=== PATIENT | female | born 1995 | race Caucasian/White ===

== ENCOUNTER 2025-09-01 21:05 | Inpatient (IN) | payer BC, SELFPAY ==
[2025-09-01 20:47] VITALS: BP 120/73; PULSE 79; TEMP 36.7; O2SAT 98
[2025-09-01 21:01] VITALS: BMI 35.2
--- OUTSIDE RECORDS SUMMARY | 2025-09-01 21:10 | XMS RPT_ITS | CCD ---
Author Organization [facility] Care Team Providers Care Patternmaker Helper Name Role Phone Jaquelin Castillo Unavailable Unavailable SONAL RHODES Unavailable Unavailable REFERRING, CHUNGY WO ID~[id number] Unavailable Unava ilable Unavailable Primary Care Provider JUDY Solis Attending Unavailable BUTLER, JUDY LOONEY Primary Care Unavailable PLOTTS, CHRISTINE Attending Unavailable PLOTTS, CHRISTINE Referring Unavailable HAURY, ALEC Attending Unavailable PLOTTS, CHRISTINE Attending Unavailable PLOTTS, CHRISTINE Attending Unavailable PLOTTS, CHRISTINE Referring Unavailable PLOTTS, CHRISTINE Attending Unavailable PLOTTS, CHRISTINE Referring Unavailable SIMONA GONZALES Attending Unavailable PLOTTS, CHRISTINE Attending Unavailable PLOTTS, CHRISTINE Attending Unavailable PLOTTS, CHRISTINE Referring Unavailable TAL GALLOWAY Attending Unavailable PLOTTS, CHRISTINE Attending Unavailable PLOTTS, CHRISTINE Referring Unavailable PLOTTS, CHRISTINE Attending Unavailable Medications Current Medications Medication Drug Class(es) Dates Sig (Normalized) Sig (Original) aspirin 81 mg delayed release oral tablet (8 sources) Platelet Aggregation Inhibitor, Nonsteroidal Anti-inflammatory Drug Start: 01-31-2025 take 1 tablet by mouth once daily aspirin, enteric coated (ECOTRIN LOW STRENGTH) 81 mg EC tablet Indications: with uncertain dates, antepartum (HCC) , Bicornate uterus , Subchorionic hematoma in first trimester, single or unspecified fetus (HCC) , 10 weeks gestation of (HCC) , Encounter for supervision of normal first in first trimester (HCC) Take 1 tablet by mouth once daily. 90 tablet 3 01/31/2025 Active cholecalciferol 0.125 mg oral tablet (8 sources) Vitamin D take 1 tablet by mouth once daily cholecalciferol (VITAMIN D-3) 5,000 unit tab Take 5,000 Units by mouth once daily. Active XHZ-VKJ-SHDTYMXYIB AGENT-VIT E ORAL (8 sources) take 1 tablet by mouth once daily AJI-RCO-AURPLLWXFO AGENT-VIT E ORAL Take 1 tablet by mouth once daily. Active famotidine 20 mg oral tablet (4 sources) Histamine-2 Receptor Antagonist Start: 03-13-2025 take 1 tablet by mouth twice daily famotidine (PEPCID) 20 mg tablet Take 1 tablet by mouth two times a day. 60 tablet 2 03/13/2025 Active MAG CITRATE-POTASSIUM CITRATE ORAL (8 sources) take 1 tablet by mouth once daily MAG CITRATE-POTASSIUM CITRATE ORAL Take 1 tablet by mouth once daily. Active ondansetron 4 mg oral tablet (5 sources) Serotonin-3 Receptor Antagonist Start: 02-14-2025 take 1 tablet by mouth every eight hours as needed for nausea ondansetron (ZOFRAN) 4 mg tablet Indications: Encounter for supervision of high risk in second trimester, antepartum (HCC) , 12 weeks gestation of (HCC) , Nausea and vomiting during (HCC) Take 1 tablet by mouth every 8 hours as needed for nausea/vomiting. 60 tablet 1 02/14/2025 Active OTC PRODUCT (8 sources) take 1 tablet by mouth once daily OTC PRODUCT Take 1 tablet by mouth once daily. methylhydrofolate Active vits18/iron/folic/ds s (PRENACARE ORAL) (8 sources) take 1 tablet by mouth once daily vits18/iron/folic/dss (PRENACARE ORAL) Take 1 tablet by mouth once daily. Active Problems Active Problems Problem Classification Problem Date Documented Da te Episodic/Chronic Bacterial infection; unspecified site (1 source) Streptococcus, group B, as the cause of diseases classified elsewhere; Translations: [Positive GBS test] Onset: 08-05-2025 Episodic Genitourinary congenital anomalies (14 sources) Bicornuate uterus; Translations: [Bicornate uterus] Onset: 01-31-2025 01-31-2025 Chronic Immunizations and screening for infectious disease (5 sources) Encounter for screening for infections with a predominantly sexual mode of transmission; Translations: [Patient encounter status] Onset: 05-17-2018 01-31-2025 Episodic Other complications of (1 source) Anemia in mother complicating , childbirth AND/OR puerperium; Translations: [Anemia complicating , second trimester] Onset: 06-06-2025 06-06-2025 Chronic Other complications of (1 source) Anemia complicating , third trimester; Translations: [Anemia complicating , third trimester (HCC)] Onset: 07-05-2025 Chronic Other complications of (12 sources) Rubella non-immune; Translations: [Supervision of other high risk pregnancies, unspecified trimester] Onset: 02-01-2025 02-14-2025 Episodic Other complications of (2 sources) Supervision of high risk , unspecified, second trimester; Translations: [Supervision of high risk in second trimester (FORM[facility]LY [facility])] Onset: 04-11-2025 Episodic Other complications of (1 source) Uterine size-date discrepancy, third trimester; Translations: [Uterine size-date discrepancy, third trimester ([facility])] Onset: 07-05-2025 Episodic Other gastrointestinal disorders (9 sources) Constipation; Translations: [Constipation, unspecified] 01-31-2025 Episodic Other and delivery including normal (14 sources) with uncertain dates; Translations: [Normal ] Onset: 01-31-2025 01-31-2025 Episodic Residual codes; unclassified (3 sources) Gestation period, 10 weeks; Translations: [10 weeks gestation of ] 01-31-2025 Episodic Residual codes; unclassified (2 sources) Gestation period, 12 weeks; Translations: [12 weeks gestation of ] 02-14-2025 Episodic Residual codes; unclassified (1 source) Gestation period, 15 weeks; Translations: [15 weeks gestation of ] 03-13-2025 Episodic Residual codes; unclassified (2 sources) Gestation period, 20 weeks; Translations: [20 weeks gestation of ] 04-11-2025 Episodic Residual codes; unclassified (1 source) Gestation period, 28 weeks; Translations: [28 weeks gestation of ] 06-06-2025 Episodic Residual codes; unclassified (1 source) 37 weeks gestation of ; Translations: [37 weeks gestation of ([facility])] Onset: 08-09-2025 Episodic Residual codes; unclassified (1 source) 36 weeks gestation of ; Translations: [36 weeks gestation of ([facility])] Onset: 08-02-2025 Episodic Residual codes; unclassified (1 source) 34 weeks gestation of ; Translations: [34 weeks gestation of ([facility])] Onset: 07-19-2025 Episodic Residual codes; unclassified (1 source) 32 weeks gestation of ; Translations: [32 weeks gestation of (HCC)] Onset: 07-05-2025 Episodic Residual codes; unclassified (1 source) 30 weeks gestation of ; Translations: [30 weeks gestation of (HCC)] Onset: 06-20-2025 Episodic Residual codes; unclassified (1 source) 28 weeks gestation of ; Translations: [28 weeks gestation of (HCC)] Onset: 06-06-2025 Episodic Unclassified (1 source) Unknown / UNK(Unknown) Onset: 07-10-2017 Unclassified (8 sources) [facility] Education - COMMON Onset: 01-31-2025 01-31-2025 Unclassified (8 sources) Education - [place] Onset: 01-31-2025 01-31-2025 Unclassified (1 source) Rubella non-immune status, antepartum (HCC); Translations: [Rubella non-immune status, antepartum (HCC)] Onset: 02-01-2025 Past or Other Problems Problem Classification Problem Date Documented Da te Episodic/Chronic Hemorrhage during ; abruptio placenta; placenta previa (1 source) Other antepartum hemorrhage, first trimester; Translations: [Subchorionic hematoma in first trimester, single or unspecified fetus (HCC)] Onset: 01-31-2025 Episodic Other complications of (10 sources) High risk ; Translations: [Supervision of high risk , unspecified, second trimester] Onset: 01-31-2025 02-14-2025 Episodic Other complications of (2 sources) Vomiting of , unspecified; Translations: [Unspecified vomiting of , unspecified as to episode of care or not applicable] Onset: 02-14-2025 02-14-2025 Episodic Other complications of (6 sources) Heartburn; Translations: [Other specified related conditions, second trimester] Onset: 03-13-2025 Resolved: 04-11-2025 03-13-2025 Episodic Other complications of (1 source) Other specified related conditions, second trimester; Translations: [Heartburn during in second trimester (HCC)] Onset: 03-13-2025 Episodic Other complications of (1 source) Supervision of other high risk pregnancies, unspecified trimester; Translations: [Rubella non-immune status, antepartum (HCC)] Onset: 02-01-2025 Episodic Other gastrointestinal disorders (1 source) Heartburn; Translations: [Heartburn during in second trimester (HCC)] Onset: 03-13-2025 Episodic Other screening for suspected conditions (not mental disorders or infectious disease) (6 sources) Cancer cervix screening status; Translations: [Encounter for screening for malignant neoplasm of cervix] Onset: 02-14-2025 01-31-2025 Episodic Polyhydramnios and other problems of amniotic cavity (14 sources) Subchorionic hematoma; Translations: [Other specified disorders of amniotic fluid and membranes, first trimester, not applicable or unspecified] Onset: 01-31-2025 Resolved: 06-06-2025 01-31-2025 Episodic Residual codes; unclassified (1 source) 23 weeks gestation of ; Translations: [23 weeks gestation of (HCC)] Onset: 05-08-2025 Episodic Residual codes; unclassified (1 source) 20 weeks gestation of ; Translations: [20 weeks gestation of ([facility])] Onset: 04-11-2025 Episodic Residual codes; unclassified (1 source) 15 weeks gestation of ; Translations: [15 weeks gestation of ([facility])] Onset: 03-13-2025 Episodic Residual codes; unclassified (1 source) 12 weeks gestation of ; Translations: [12 weeks gestation of ([facility])] Onset: 02-14-2025 Episodic Residual codes; unclassified (1 source) 10 weeks gestation of ; Translations: [10 weeks gestation of ([facility])] Onset: 01-31-2025 Episodic Unclassified (1 source) +ETOH, DAILEY, 6 Onset: 07-10-2017 Results Test Name Value Interpretation Reference Range Facility ROUTINE, GROUP B ST REPTOCOCCUS BY PCRon 08-02-2025 ROUTINE, GROUP B STREPTOCOCCUS BY PCR Detected Abnormal [facility] Comment on above: Performed By: #### 5 5454-3 #### [facility] CLIA [id number] [address] [place] [address] [place] CBC W Auto Differential pane l (Bld)on 06-06-2025 Basophils (Bld) [#/Vol] 10*3/uL Normal <0.11 [facility] Comment on above: Order Comment: Speci men Type: BLOOD SPECIMEN Ordering Facility: [facility] Address: [address] [place] [address] Performed By: #### 5 7021-8 #### [facility] CLIA [id number] [address] [place] [address] [place] Basophils/100 WBC (Bld) 0.4 % Normal [facility] Comment on above: Order Comment: Speci men Type: BLOOD SPECIMEN Ordering Facility: [facility] Address: [address] [place] [address] Performed By: #### 5 7021-8 #### [facility] CLIA [id number] [address] [place] [address] [place] Differential cell count method Nom (Bld) Auto Normal [facility] Comment on above: Order Comment: Speci men Type: BLOOD SPECIMEN Ordering Facility: [facility] Address: [address] [place] [address] Performed By: #### 5 7021-8 #### [facility] CLIA [id number] [address] [place] [address] [place] Eosinophils (Bld) [#/Vol] 0.09 10*3/uL Normal <0.46 [facility] Comment on above: Order Comment: Speci men Type: BLOOD SPECIMEN Ordering Facility: [facility] Address: [address] [place] [address] Performed By: #### 5 7021-8 #### [facility] CLIA [id number] [address] [place] [address] [place] Eosinophils/100 WBC (Bld) 1.6 % Normal [facility] Comment on above: Order Comment: Speci men Type: BLOOD SPECIMEN Ordering Facility: [facility] Address: [address] [place] [address] Performed By: #### 5 7021-8 #### [facility] CLIA [id number] [address] [place] [address] [place] Erythrocyte distribution width (RBC) [Ratio] 12.3 % Normal 11.5-15.0 [facility] Comment on above: Order Comment: Speci men Type: BLOOD SPECIMEN Ordering Facility: [facility] Address: [address] [place] [address] Performed By: #### 5 7021-8 #### [facility] CLIA [id number] [address] [place] [address] [place] Hematocrit (Bld) [Volume fraction] 31.2 % Low 36.0-46.0 [facility] Comment on above: Order Comment: Speci men Type: BLOOD SPECIMEN Ordering Facility: [facility] Address: [address] [place] [address] Performed By: #### 5 7021-8 #### [id number] [address] [place] [address] [place] Hemoglobin (Bld) [Mass/Vol] 10.4 g/dL Low 11.5-15.5 [facility] Comment on above: Order Comment: Speci men Type: BLOOD SPECIMEN Ordering Facility: [facility] Address: [address] [place] [address] Performed By: #### 5 7021-8 #### [facility] [id number] [address] [place] [address] [place] Immature granulocytes (Bld) [#/Vol] 10*3/uL Normal <0.10 [facility] Comment on above: Order Comment: Speci men Type: BLOOD SPECIMEN Ordering Facility: [facility] Address: [address] [place] [address] Performed By: #### 5 7021-8 #### [facility] [id number] [address] [place] [address] [place] Immature granulocytes/100 WBC (Bld) 0.2 % Normal [facility] Comment on above: Order Comment: Speci men Type: BLOOD SPECIMEN Ordering Facility: [facility] Address: [address] [place] [address] Performed By: #### 5 7021-8 #### [facility] CLIA [id number] [address] [place] [address] [place] Lymphocytes (Bld) [#/Vol] 1.07 10*3/uL Normal 1.00-4.00 [facility] Comment on above: Order Comment: Speci men Type: BLOOD SPECIMEN Ordering Facility: [facility] Address: [address] [place] [address] Performed By: #### 5 7021-8 #### [facility] CLIA [id number] [address] [place] [address] [place] Lymphocytes/100 WBC (Bld) 18.8 % Normal [facility] Comment on above: Order Comment: Speci men Type: BLOOD SPECIMEN Ordering Facility: [facility] Address: [address] [place] [address] Performed By: #### 5 7021-8 #### [facility] CLIA [id number] [address] [place] [address] [place] MCH (RBC) [Entitic mass] 33.7 pg Normal 26.0-34.0 [facility] Comment on above: Order Comment: Speci men Type: BLOOD SPECIMEN Ordering Facility: [facility] Address: [address] [place] [address] Performed By: #### 5 7021-8 #### [facility] CLIA [id number] [address] [place] [address] [place] MCHC (RBC) [Mass/Vol] 33.3 g/dL Normal 30.5-36.0 [facility] Comment on above: Order Comment: Speci men Type: BLOOD SPECIMEN Ordering Facility: [facility] Address: [address] [place] [address] Performed By: #### 5 7021-8 #### [facility] CLIA [id number] [address] [place] [address] [place] MCV (RBC) [Entitic vol] 101.0 fL High 80.0-100.0 [facility] Comment on above: Order Comment: Speci men Type: BLOOD SPECIMEN Ordering Facility: [facility] Address: [address] [place] [address] Performed By: #### 5 7021-8 #### [facility] CLIA [id number] [address] [place] [address] [place] Monocytes (Bld) [#/Vol] 0.52 10*3/uL Normal <0.87 [facility] Comment on above: Order Comment: Speci men Type: BLOOD SPECIMEN Ordering Facility: [facility] Address: [address] [place] [address] Performed By: #### 5 7021-8 #### [facility] CLIA [id number] [address] [place] [address] [place] Monocytes/100 WBC (Bld) 9.1 % Normal [facility] Comment on above: Order Comment: Speci men Type: BLOOD SPECIMEN Ordering Facility: [facility] Address: [address] [place] [address] Performed By: #### 5 7021-8 #### [facility] CLIA [id number] [address] [place] [address] [place] Neutrophils (Bld) [#/Vol] 3.99 10*3/uL Normal 1.45-7.50 [facility] Comment on above: Order Comment: Speci men Type: BLOOD SPECIMEN Ordering Facility: [facility] Address: [address] [place] [address] Performed By: #### 5 7021-8 #### [facility] CLIA [id number] [address] [place] [address] [place] Neutrophils/100 WBC (Bld) 69.9 % Normal [facility] Comment on above: Order Comment: Speci men Type: BLOOD SPECIMEN Ordering Facility: [facility] Address: [address] [place] [address] Performed By: #### 5 7021-8 #### [facility] CLIA [id number] [address] [place] [address] [place] Nucleated RBC (Bld) [#/Vol] 10*3/uL Normal <0.01 [facility] Comment on above: Order Comment: Speci men Type: BLOOD SPECIMEN Ordering Facility: [facility] Address: [address] [place] [address] Performed By: #### 5 7021-8 #### [facility] CLIA [id number] [address] [place] [address] [place] Nucleated RBC/100 WBC (Bld) [Ratio] 0.0 /100 WBC Normal [facility] Comment on above: Order Comment: Speci men Type: BLOOD SPECIMEN Ordering Facility: [facility] Address: [address] [place] [address] Performed By: #### 5 7021-8 #### [facility] CLIA [id number] [address] [place] [address] [place] Platelet mean volume (Bld) [Entitic vol] 8.9 fL Low 9.0-12.7 [facility] Comment on above: Order Comment: Speci men Type: BLOOD SPECIMEN Ordering Facility: [facility] Address: [address] [place] [address] Performed By: #### 5 7021-8 #### [facility] [id number] [address] [place] [address] [place] Platelets (Bld) [#/Vol] 213 10*3/uL Normal 150-400 [facility] Comment on above: Order Comment: Speci men Type: BLOOD SPECIMEN Ordering Facility: [facility] Address: [address] [place], [place] [id number] Performed By: #### 5 7021-8 #### [facility] CLIA [id number] [address] [place] [address] [place] RBC (Bld) [#/Vol] 3.09 10*6/uL Low 3.90-5.20 [facility] Comment on above: Order Comment: Speci men Type: BLOOD SPECIMEN Ordering Facility: [facility] Address: [address] [place] [address] Performed By: #### 5 7021-8 #### [facility] CLIA [id number] [address] [place] [address] [place] WBC (Bld) [#/Vol] 5.70 10*3/uL Normal 3.70-11.00 [facility] Comment on above: Order Comment: Speci men Type: BLOOD SPECIMEN Ordering Facility: [facility] Address: [address] [place] [address] Performed By: #### 5 7021-8 #### [facility] CLIA [id number] [address] [place] [address] [place] GESTATIONAL GLUCOSE SCREEN, 1-HOUR, 50 GRAM, NON-FASTINGon 06-06-2025 Glucose [Mass/Vol] 124 mg/dL Normal 74-134 [facility] Comment on above: Order Comment: Speci men Type: BLOOD SPECIMEN Ordering Facility: [facility] Address: [address] [place], [place] [id number] Result Comment: [facility] Congress of Obstetricians and Gynecologists (Cyndi/Christiano) guidelines state a gestational diabetes mellitus positive screen is made, in women not previously diagnosed with overt diabetes, when the 1 hr plasma glucose level is equal to or above 140 mg/dL. [facility] [facility] Kennan recommends a 135 mg/dL cutoff. Performed By: #### 5 5454-3 #### [facility] CLIA [id number] [address] [place] [address] [place] Reagin and Treponema pallidu m IgG and IgM [Interp]on 06-06-2025 T. pallidum IgG+IgM IA Ql (S) Non-Reactive Normal Nonreactive [facility] Comment on above: Order Comment: Speci men Type: BLOOD SPECIMEN Ordering Facility: [facility] Address: [address] [place] [address] Performed By: #### 5 5454-3 #### [facility] CLIA [id number] [address] [place] [address] [place] Reagin+T pallidum IgG+IgM Se rPl-Impon 06-06-2025 Reagin and Treponema pallidum IgG and IgM [Interp] Cannot exclude recent Treponemal infection if specimen collected within 7-10 days after appearance of suspect lesions or 2-3 weeks after an exposure. Clinical correlation is required. Normal [facility] Comment on above: Order Comment: Speci men Type: BLOOD SPECIMEN Ordering Facility: [facility] Address: [address] [place] [address] Performed By: #### 5 5454-3 #### [facility] CLIA [id number] [address] [place] [address] [place] Examination level ultrasound on 04-11-2025 Indication Standard anatomic survey Impression The patient is referred for a standard anatomic survey. - Single, live, intrauterine . - biometry is consistent with the established gestational age. - No malformations were visualized on a complete standard anatomic survey. - The amniotic fluid volume is normal amount. - The placenta is posterior, fundal. - The Transabdominal cervical length measures 38.9 mm with no evidence of funneling or other dynamic changes. - Not all structural malformations can be detected by ultrasound examination. Recommendations Additional follow-up as clinically indicated. Maternal Assessment Height 163 cm Height (ft) 5 ft Height (in) 4 in Physical Exam Initial weight (lb) 139 lb Initial BMI 23.86 kg/m Maternal assessment other: 1 Para 0 REMOTE READ Method Transabdominal ultrasound examination. View: Adequate visualization Dowd . Number of fetuses: 1 Dating LMP on: 11/22/2024 GA by LMP 20 w + 0 d DANIEL by LMP: 08/29/2025 GA by prior assessment 20 w + 0 d DANIEL by prior assessment: 08/29/2025 Ultrasound examination on: 04/11/2025 GA by U/S based upon: AC, BPD, Femur, HC GA by U/S 20 w + 3 d DANIEL by U/S: 08/26/2025 Assigned: based on the LMP, selected on 01/31/2025 Assigned GA 20 w + 0 d Assigned DANIEL: 08/29/2025 General Evaluation Cardiac activity present. FHR 136 bpm. movements: present. Presentation: cephalic Placenta: Placental site: posterior, fundal Umbilical cord: Cord vessels: 3 vessel cord Amniotic fluid: Amount of AF: normal amount. MVP 4.0 cm Growth Overview Exam date GA BPD (mm) HC (mm) AC (mm) FL (mm) HL (mm) EFW (g) 04/11/2025 20w 0d 47.8 69% 179.9 63% 161.7 83% 30.9 49% 31.3 70% 357 72% Biometry Standard BPD 47.8 mm 20w 3d 69% Hadlock OFD 64.3 mm 20w 3d 90% Nicolaides HC 179.9 mm 20w 3d 63% Wally Cerebellum tr 20.3 mm 19w 3d 58% Hill Nuchal fold 5.3 mm AC 161.7 mm 21w 2d 83% Hadlock Femur 30.9 mm 19w 5d 49% Wally Humerus 31.3 mm 20w 3d 70% Wally EFW 357 g 20w 3d 72% Hadlock EFW (lb) 0 lb EFW (oz) 13 oz EFW by: Hadlock (HC-AC-FL) Extended Gin Clerk 5.8 mm CM 4.0 mm 18% Nicolaides Extremities / Bony Struc FL / HC 0.17 5% Hadlock Other Structures FHR 136 bpm Anatomy Cranium: normal Lateral ventricles: normal Choroid plexus: normal Midline falx: normal Cavum septi pellucidi: normal Cerebellum: normal Cisterna magna: normal Head / Neck Vermis: Normal but not required for a standard anatomy exam Neck: Normal but not required for a standard anatomy exam Nuchal fold: Normal but not required for a standard anatomy exam Lips: normal Profile: Normal but not required for a standard anatomy exam Nose: Normal but not required for a standard anatomy exam Face Maxilla: Normal but not required for a standard anatomy exam Mandible: Normal but not required for a standard anatomy exam Orbits: Normal but not required for a standard anatomy exam Lens: Normal but not required for a standard anatomy exam 4-chamber view: normal RVOT view: normal LVOT view: normal 3-vessel view: normal 5-mxlpnx-ikcqftm view: normal Heart / Thorax Situs: situs solitus (normal) Aortic arch view: Normal but not required for a standard anatomy exam SVC: Normal but not required for a standard anatomy exam IVC: Normal but not required for a standard anatomy exam Cardiac axis: normal Rt lung: Normal but not required for a standard anatomy exam Lt lung: Normal but not required for a standard anatomy exam Diaphragm: normal Cord insertion: normal Stomach: normal Kidneys: normal Bladder: normal Genitals: normal Abdomen Abdom. wall: normal Cervical spine: normal Thoracic spine: normal Lumbar spine: normal Sacral spine: normal Arms: normal Legs: normal Rt upper arm: normal Rt forearm: normal Rt hand: normal Rt fingers: normal Lt upper arm: normal Lt forearm: normal Lt hand: normal Lt fingers: normal Rt upper leg: normal Rt lower leg: normal Rt foot: normal Lt upper leg: normal Lt lower leg: normal Lt foot: normal sex: female Wants to know sex: yes Maternal Structures Uterus / Cervix Uterus: Visualized Cervix: Visualized Approach: Transabdominal Cervical length 38.9 mm Other: Patient declined transvaginal ultrasound for cervical length. Ovaries / Tubes / Adnexa Rt ovary: Visualized Lt ovary: Visualized Performed By: Araceli Hale RDMS, RVT Read By: Gina Dorado M.D. MATERNAL MEDICINE [facility] Radiology Study observation (narrative) [facility] CNCOon 02-14-2025 CNCO Letter Text Normal [facility] Examination level ultrasound on 02-14-2025 Indication First trimester anatomic survey Impression The patient is referred for a first trimester anatomy scan including nuchal translucency measurement as clinically indicated. - Single, live, intrauterine . - Mobridge rump length measurement is consistent with the established gestational age. - A qualitative screen of the nuchal translucency and other anatomic structures was unremarkable on a complete first trimester anatomic assessment. - Not all structural malformations can be detected by ultrasound examination. Maternal Structures: Right Ovary: Size 38 mm x 32 mm x 23 mm Left Ovary: Size 26 mm x 21 mm x 15 mm Recommendations Return for anatomy ultrasound Maternal Assessment Height 163 cm Height (ft) 5 ft Height (in) 4 in Physical Exam Initial weight (lb) 139 lb Initial BMI 23.86 kg/m Maternal assessment other: 1 Para 0 REMOTE READ Method Transabdominal ultrasound examination Dowd . Number of fetuses: 1 Dating LMP on: 11/22/2024 GA by LMP 12 w + 0 d DANIEL by LMP: 08/29/2025 GA by prior assessment 12 w + 0 d DANIEL by prior assessment: 08/29/2025 Ultrasound examination on: 02/14/2025 GA by U/S based upon: CRL GA by U/S 12 w + 5 d DANIEL by U/S: 08/24/2025 Assigned: based on the LMP, selected on 01/31/2025 Assigned GA 12 w + 0 d Assigned DANIEL: 08/29/2025 General Evaluation Cardiac activity present Placenta: posterior Cord vessels: 3 vessel cord Amniotic fluid: normal amount Biometry Standard FHR 159 bpm CRL 63.4 mm 12w 5d 89% [facility] First Trimester Anatomy Calvarium: normal Falx cerebri: normal Choroid plexus: normal Profile: normal Nasal bone: normal Retronasal triangle: normal Maxilla: normal Mandible: normal Nuchal translucency: Unremarkable Situs: normal Cardiac position: normal Cardiac axis: normal 4-chamber view: visualized 4-chamber view with color: normal 5-jopkme-bksyjus view: normal Abdominal cord insertion: normal Stomach: normal Kidneys: visualized Bladder: normal Color doppler of perivesical umbilical arteries: normal Vertebral alignment: normal Arms: normal Hands: normal Legs: normal Feet: normal Maternal Structures Uterus / Cervix Uterus: Visualized Uterus length 160 mm Uterus width 128 mm Uterus height 90 mm Uterus Vol 961.4 cm Ovaries / Tubes / Adnexa Rt ovary: Visualized Rt ovary D1 38 mm Rt ovary D2 32 mm Rt ovary D3 23 mm Rt ovary Vol 14.3 cm Lt ovary: Visualized Lt ovary D1 26 mm Lt ovary D2 21 mm Lt ovary D3 15 mm Lt ovary Vol 4.2 cm Performed By: Araceli Hale RDMS, RVT Read By: Gina Dorado, M.D. MATERNAL MEDICINE [facility] Radiology Study observation (narrative) [facility] Bacteria Ur Culton Bacteria identified Cx Nom (U) ORGANISM ID: 1 10,000 -<50,000 CFU/ml Normal urogenital juan Normal [facility] Comment on above: Performed By: #### 5 5454-3 #### [facility] CLIA [id number] [address] [place] [address] [place] C. trachomatis+N. gonorrhoea e DNA CESAR+probe Ql (Unsp spec)on 01-31-2025 C. trachomatis rRNA CESAR+probe Ql (Unsp spec) Not detected Normal Not detected [facility] Comment on above: Order Comment: Speci men Type: BLOOD SPECIMEN Ordering Facility: [facility] Address: [address] [place] [address] Performed By: #### 5 5454-3 #### [facility] CLIA [id number] [address] [place] [address] [place] N. gonorrhoeae rRNA CESAR+probe Ql (Unsp spec) Not detected Normal Not detected [facility] Comment on above: Order Comment: Speci men Type: BLOOD SPECIMEN Ordering Facility: [facility] Address: [address] [place] [address] Performed By: #### 5 5454-3 #### [facility] CLIA [id number] [address] [place] [address] [place] CBC W Auto Differential pane l (Bld)on 01-31-2025 Basophils (Bld) [#/Vol] 10*3/uL Normal <0.11 [facility] Comment on above: Order Comment: Speci men Type: FLUID SPECIMEN Ordering Facility: [facility] Address: [address] [place] [address] Performed By: #### H PVHRT #### [facility] CLIA [id number] [address] [place] [address] [place] Basophils/100 WBC (Bld) 0.4 % Normal [facility] Comment on above: Order Comment: Speci men Type: FLUID SPECIMEN Ordering Facility: [facility] Address: [address] [place] [address] Performed By: #### H PVHRT #### [facility] CLIA [id number] [address] [place] [address] [place] Differential cell count method Nom (Bld) Auto Normal [facility] Comment on above: Order Comment: Speci men Type: FLUID SPECIMEN Ordering Facility: [facility] Address: [address] [place] [address] Performed By: #### H PVHRT #### [facility] CLIA [id number] [address] [place] [address] [place] Eosinophils (Bld) [#/Vol] 0.08 10*3/uL Normal <0.46 [facility] Comment on above: Order Comment: Speci men Type: FLUID SPECIMEN Ordering Facility: [facility] Address: [address] [place] [address] Performed By: #### H PVHRT #### [facility] CLIA [id number] [address] [place] [address] [place] Eosinophils/100 WBC (Bld) 1.4 % Normal [facility] Comment on above: Order Comment: Speci men Type: FLUID SPECIMEN Ordering Facility: [facility] Address: [address] [place] [address] Performed By: #### H PVHRT #### [facility] CLIA [id number] [address] [place] [address] [place] Erythrocyte distribution width (RBC) [Ratio] 12.1 % Normal 11.5-15.0 [facility] Comment on above: Order Comment: Speci men Type: FLUID SPECIMEN Ordering Facility: [facility] Address: [address] [place] [address] Performed By: #### H PVHRT #### [facility] CLIA [id number] [address] [place] [address] [place] Hematocrit (Bld) [Volume fraction] 34.1 % Low 36.0-46.0 [facility] Comment on above: Order Comment: Speci men Type: FLUID SPECIMEN Ordering Facility: [facility] Address: [address] [place] [address] Performed By: #### H PVHRT #### [facility] CLIA [id number] [address] [place] [address] [place] Hemoglobin (Bld) [Mass/Vol] 11.6 g/dL Normal 11.5-15.5 [facility] Comment on above: Order Comment: Speci men Type: FLUID SPECIMEN Ordering Facility: [facility] Address: [address] [place] [address] Performed By: #### H PVHRT #### [facility] CLIA [id number] [address] [place] [address] [place] Immature granulocytes (Bld) [#/Vol] 0.03 10*3/uL Normal <0.10 [facility] Comment on above: Order Comment: Speci men Type: FLUID SPECIMEN Ordering Facility: [facility] Address: [address] [place] [address] Performed By: #### H PVHRT #### [facility] CLIA [id number] [address] [place] [address] [place] Immature granulocytes/100 WBC (Bld) 0.5 % Normal [facility] Comment on above: Order Comment: Speci men Type: FLUID SPECIMEN Ordering Facility: [facility] Address: [address] [place] [address] Performed By: #### H PVHRT #### [facility] CLIA [id number] [address] [place] [address] [place] Lymphocytes (Bld) [#/Vol] 1.41 10*3/uL Normal 1.00-4.00 [facility] Comment on above: Order Comment: Speci men Type: FLUID SPECIMEN Ordering Facility: [facility] Address: [address] [place] [address] Performed By: #### H PVHRT #### [facility] CLIA [id number] [address] [place] [address] [place] Lymphocytes/100 WBC (Bld) 24.7 % Normal [facility] Comment on above: Order Comment: Speci men Type: FLUID SPECIMEN Ordering Facility: [facility] Address: [address] [place] [address] Performed By: #### H PVHRT #### [facility] CLIA [id number] [address] [place] [address] [place] MCH (RBC) [Entitic mass] 33.0 pg Normal 26.0-34.0 [facility] Comment on above: Order Comment: Speci men Type: FLUID SPECIMEN Ordering Facility: [facility] Address: [address] [place] [address] Performed By: #### H PVHRT #### [facility] CLIA [id number] [address] [place] [address] [place] MCHC (RBC) [Mass/Vol] 34.0 g/dL Normal 30.5-36.0 [facility] Comment on above: Order Comment: Speci men Type: FLUID SPECIMEN Ordering Facility: [facility] Address: [address] [place] [address] Performed By: #### H PVHRT #### [facility] CLIA [id number] [address] [place] [address] [place] MCV (RBC) [Entitic vol] 96.9 fL Normal 80.0-100.0 [facility] Comment on above: Order Comment: Speci men Type: FLUID SPECIMEN Ordering Facility: [facility] Address: [address] [place] [address] Performed By: #### H PVHRT #### [facility] CLIA [id number] [address] [place] [address] [place] Monocytes (Bld) [#/Vol] 0.43 10*3/uL Normal <0.87 [facility] Comment on above: Order Comment: Speci men Type: FLUID SPECIMEN Ordering Facility: [facility] Address: [address] [place] [address] Performed By: #### H PVHRT #### [facility] CLIA [id number] [address] [place] [address] [place] Monocytes/100 WBC (Bld) 7.5 % Normal [facility] Comment on above: Order Comment: Speci men Type: FLUID SPECIMEN Ordering Facility: [facility] Address: [address] [place] [address] Performed By: #### H PVHRT #### [facility] CLIA [id number] [address] [place] [address] [place] Neutrophils (Bld) [#/Vol] 3.74 10*3/uL Normal 1.45-7.50 [facility] Comment on above: Order Comment: Speci men Type: FLUID SPECIMEN Ordering Facility: [facility] Address: [address] [place] [address] Performed By: #### H PVHRT #### [facility] CLIA [id number] [address] [place] [address] [place] Neutrophils/100 WBC (Bld) 65.5 % Normal [facility] Comment on above: Order Comment: Speci men Type: FLUID SPECIMEN Ordering Facility: [facility] Address: [address] [place] [address] Performed By: #### H PVHRT #### [facility] CLIA [id number] [address] [place] [address] [place] Nucleated RBC (Bld) [#/Vol] 10*3/uL Normal <0.01 [facility] Comment on above: Order Comment: Speci men Type: FLUID SPECIMEN Ordering Facility: [facility] Address: [address] [place] [address] Performed By: #### H PVHRT #### [facility] CLIA [id number] [address] [place] [address] [place] Nucleated RBC/100 WBC (Bld) [Ratio] 0.0 /100 WBC Normal [facility] Comment on above: Order Comment: Speci men Type: FLUID SPECIMEN Ordering Facility: [facility] Address: [address] [place] [address] Performed By: #### H PVHRT #### [facility] CLIA [id number] [address] [place] [address] [place] Platelet mean volume (Bld) [Entitic vol] 8.8 fL Low 9.0-12.7 [facility] Comment on above: Order Comment: Speci men Type: FLUID SPECIMEN Ordering Facility: [facility] Address: [address] [place] [address] Performed By: #### H PVHRT #### [facility] CLIA [id number] [address] [place] [address] [place] Platelets (Bld) [#/Vol] 261 10*3/uL Normal 150-400 [facility] Comment on above: Order Comment: Speci men Type: FLUID SPECIMEN Ordering Facility: [facility] Address: [address] [place] [address] Performed By: #### H PVHRT #### [facility] CLIA [id number] [address] [place] [address] [place] RBC (Bld) [#/Vol] 3.52 10*6/uL Low 3.90-5.20 [facility] Comment on above: Order Comment: Speci men Type: FLUID SPECIMEN Ordering Facility: [facility] Address: [address] [place] [address] Performed By: #### H PVHRT #### [facility] CLIA [id number] [address] [place] [address] [place] WBC (Bld) [#/Vol] 5.71 10*3/uL Normal 3.70-11.00 [facility] Comment on above: Order Comment: Speci men Type: FLUID SPECIMEN Ordering Facility: [facility] Address: [address] [place] [address] Performed By: #### H PVHRT #### [facility] CLIA [id number] [address] [place] [address] [place] HBV surface Ag Ser Qlon HBV surface Ag Ql (S) Negative Normal Negative [facility] Comment on above: Order Comment: Speci men Type: BLOOD SPECIMEN Ordering Facility: [facility] Address: [address] [place] [address] Performed By: #### 5 195-3, 65273-2, 26564-6 #### [facility] CLIA [id number] [address] [place] [address] [place] HCV Ab Ser Qlon 01-31-2025 HCV Ab Ql (S) Negative Normal Negative [facility] Comment on above: Order Comment: Speci men Type: BLOOD SPECIMEN Ordering Facility: [facility] Address: [address] [place] [address] Result Comment: The result suggests no evidence of infection with Hepatitis C virus. Should recent infection be suspected, repeat testing may be considered 4-6 weeks after this draw. Performed By: #### 1 6128-1 #### [facility] CLIA [id number] [address] [place] [address] [place] HIGH RISK HUMAN PAPILLOMA JAMAL (HPV), PCR FOR DETECTION AND GENOTYPINGon 01-31-2025 HPV 16 Ag Ql (Unsp spec) Not detected Normal Not detected [facility] Comment on above: Order Comment: Speci men Type: FLUID SPECIMEN Ordering Facility: [facility] Address: [address] [place] [address] Performed By: #### H PVHRT #### [facility] CLIA [id number] [address] [place] [address] [place] HPV 18 Ag Ql (Unsp spec) Not detected Normal Not detected [facility] Comment on above: Order Comment: Speci men Type: FLUID SPECIMEN Ordering Facility: [facility] Address: [address] [place] [address] Performed By: #### H PVHRT #### [facility] CLIA [id number] [address] [place] [address] [place] HPV 31+33+35+39+45+51 +52+56+58+59+66+6 8 DNA CESAR+probe Ql (Cvx) Not detected Normal Not detected [facility] Comment on above: Order Comment: Speci men Type: FLUID SPECIMEN Ordering Facility: [facility] Address: [address] [place] [address] Result Comment: High Risk HPV Other Type includes HPV types 31, 33, 35, 39, 45, 51, 52, 56, 58, 59, 66 and 68. Performed By: #### H PVHRT #### [facility] CLIA [id number] [address] [place] [address] [place] [facility] [place] HIV 1+2 Ab IA Qlon 5 HIV 1 and 2 Ab IA.rapid Nom (S/P/Bld) Normal [facility] Comment on above: Order Comment: Speci men Type: BLOOD SPECIMEN Ordering Facility: [facility] Address: [address] [place] [address] Result Comment: Test not indicated. Performed By: #### 5 195-3, 06970-5, 61583-1 #### [facility] CLIA [id number] [address] [place] [address] [place] HIV 1+2 Ab+HIV1 p24 Ag IA Ql Non-Reactive Normal Nonreactive [facility] Comment on above: Order Comment: Speci men Type: BLOOD SPECIMEN Ordering Facility: [facility] Address: [address] [place] [address] Performed By: #### 5 195-3, 99799-4, 38106-0 #### [facility] CLIA [id number] [address] [place] [address] [place] HIV immunoassay testing algorithm interpretation (S/P/Bld) [Interp] Normal [facility] Comment on above: Order Comment: Speci men Type: BLOOD SPECIMEN Ordering Facility: [facility] Address: [address] [place] [address] Result Comment: No e vidence of HIV-1 or HIV-2 infection. Should recent infection be suspected, repeat testing may be considered 2-3 weeks after this draw. [place] Rev. Code 3701.243(E): This information has been disclosed to you from confidential records protected from disclosure by state law. You shall make no further disclosure of this information without the specific, written, and informed release of the individual to whom it pertains or as otherwise permitted by state law. A general authorization for the release of medical or other information is not sufficient for the purpose of the release of HIV test results or diagnoses. Performed By: #### 5 195-3, 46800-4, 24977-0 #### [facility] CLIA [id number] [address] [place] [address] [place] HbA1c (Bld)on 01-31-2025 Average glucose Estimated from glycated hemoglobin (Bld) [Mass/Vol] 85 mg/dL Normal [facility] Comment on above: Order Comment: Speci men Type: BLOOD SPECIMEN Ordering Facility: [facility] Address: [address] [place] [address] Result Comment: eAG: (Estimated average glucose) is a calculated value from HgbA1c and is technical support representative of the average blood glucose level in the last 2-3 month period. Performed By: #### 5 5454-3 #### [facility] CLIA [id number] [address] [place] [address] [place] HbA1c (Bld) [Mass fraction] 4.6 % Normal 4.3-5.6 [facility] Comment on above: Order Comment: Sylvester childs Type: BLOOD SPECIMEN Ordering Facility: [facility] Address: [address] [place] [address] Result Comment: [place] Diabetes [employer] guidelines indicate that patients with HgbA1c in the range 5.7-6.4% are at increased risk for development of diabetes, and intervention by lifestyle modification may be beneficial. HgbA1c greater or equal to 6.5% is considered diagnostic of diabetes. Performed By: #### 5 5454-3 #### [facility] CLIA [id number] [address] [place] [address] OF [place] [id number] PLUSon 01-31-2025 Cell-free DNA./Cell-fr ee DNA.total Dosage of chromosome-specif ic cfDNA (cfDNA) [Molar fraction] 23% Normal [facility] Comment on above: Order Comment: Sylvester childs Type: FLUID SPECIMEN Ordering Facility: [facility] Address: [address] [place] [address] Performed By: #### H PVHRT #### [facility] CLIA [id number] [address] [place] [address] [place] Chr 13+18+21+X+Y aneuploidy Dosage of chromosome-specif ic cfDNA Ql (cfDNA) Negative Normal [facility] Comment on above: Order Comment: Sylvester childs Type: FLUID SPECIMEN Ordering Facility: [facility] Address: [address] [place] [address] Performed By: #### H PVHRT #### [facility] CLIA [id number] [address] [place] [address] OF [place] Chr 21 trisomy Dosage of chromosome-specif ic cfDNA Ql (cfDNA) Negative Normal [facility] Comment on above: Order Comment: Sylvester childs Type: FLUID SPECIMEN Ordering Facility: [facility] Address: [address] [place] [address] Performed By: #### H PVHRT #### [facility] CLIA [id number] [address] [place] [address] [place] Chr X and Y aneuploidy risk Sequencing Ql (cfDNA) [Interp] Not detected Normal [facility] Comment on above: Order Comment: Speci men Type: FLUID SPECIMEN Ordering Facility: [facility] Address: [address] [place] [address] Result Comment: Not Detected Not Detected Performed By: #### H PVHRT #### [facility] CLIA [id number] [address] [place] [address] [place] Citation Art (Reference lab test) Comment Normal [facility] Comment on above: Order Comment: Speci men Type: FLUID SPECIMEN Ordering Facility: [facility] Address: [address] [place] [address] Result Comment: 1. P freeman AGUIRRE, et al. Yeni Med. 2012;14(3):296-305. 2. Marva CHANDLER, et al. Prenat Diag. 2013;33(6):591-597. 3. Vignesh C, et al. Clin Chem. 2015 Apr;61(4):608-616. 4. James AGUIRRE, et al. Yeni Med. 2011;13(11):913-920. 5. ACOG/SMFM Practice Bulletin No. 226, Jul 2020. Performed By: #### H PVHRT #### [facility] CLIA [id number] [address] [place] [address] [place] Gestational age Estimated from conception date Dowd Normal [facility] Comment on above: Order Comment: Speci men Type: FLUID SPECIMEN Ordering Facility: [facility] Address: [address] [place] [address] Performed By: #### H PVHRT #### [facility] CLIA [id number] [address] [place] [address] OF [place] GESTATIONALAGE AGE > OR = 9W Yes Normal [facility] Comment on above: Order Comment: Speci men Type: FLUID SPECIMEN Ordering Facility: [facility] Address: [address] [place] [address] Performed By: #### H PVHRT #### [facility] CLIA [id number] [address] [place] [address] Laboratory comment Art (Report) Comment Normal [facility] Comment on above: Order Comment: Sylvester childs Type: FLUID SPECIMEN Ordering Facility: [facility] Address: [address] [place] [address] Result Comment: The MaterniT(R) 21 PLUS laboratory-developed test (LDT) analyzes circulating cell-free DNA from a maternal blood sample. This test is used for screening purposes and not diagnostic. Clinical correlation is recommended. Validation data on twin pregnancies is limited and the ability of this test to detect aneuploidy in higher multiple gestations has not yet been validated. Performed By: #### H PVHRT #### [facility] CLIA [id number] [address] [place] [address] director hardware name Nom (Provider) Comment Normal [facility] Comment on above: Order Comment: Sylvester childs Type: FLUID SPECIMEN Ordering Facility: [facility] Address: [address] [place] [address] Result Comment: This specimen showed an expected representation of chromosome 21, 18 and 13 material. Clinical correlation is suggested. Comment Julio Mesa MD, PhD, Director, [employer] Performed By: #### H PVHRT #### [facility] CLIA [id number] [address] [place] [address] LIMITATIONS OF THE TEST Comment Normal [facility] Comment on above: Order Comment: Sylvester childs Type: FLUID SPECIMEN Ordering Facility: [facility] Address: [address] [place] [address] Result Comment: Ketan rodrigues the results of these tests are highly reliable, discordant results, including inaccurate sex prediction, may occur due to placental, maternal, or mosaicism or neoplasm; vanishing twin; prior maternal organ transplant; or other causes. These tests are screening tests and not diagnostic; they do not replace the accuracy and precision of diagnosis with CVS or amniocentesis. A patient with a positive test result should be referred for genetic counseling and offered invasive diagnosis for confirmation of test results.[5] The results of this testing, including the benefits and limitations, should be discussed with a qualified healthcare provider. management decisions, including termination of the , should not be based on the results of these tests alone. The healthcare provider is responsible for the use of this information in the management of their patient. Sex chromosomal aneuploidies are not reportable for known multiple gestations. A negative result does not ensure an unaffected nor does it exclude the possibility of other chromosomal abnormalities or defects which are not a part of these tests. An uninformative result may be reported, the causes of which may include, but are not limited to, insufficient sequencing coverage, noise or artifacts in the region, amplification or sequencing bias, or insufficient fraction. These tests are not intended to identify pregnancies at risk for neural tube defects or ventral wall defects. Testing for whole chromosome abnormalities (including sex chromosomes) and for subchromosomal abnormalities could lead to the potential discovery of both and maternal genomic abnormalities that could have major, minor, or no, clinical significance. Evaluating the significance of a positive or a non-reportable result may involve both invasive testing and additional studies on the mother. Such investigations may lead to a diagnosis of maternal chromosomal or subchromosomal abnormalities, which on occasion may be associated with benign or malignant maternal neoplasms. These tests may not accurately identify triploidy, balanced rearrangements, or the precise location of subchromosomal duplications or deletions; these may be detected by diagnosis with CVS or amniocentesis. The ability to report results may be impacted by maternal BMI, maternal weight, maternal systemic lupus erythematosus (SLE) and/or by certain pharmaceutical agents such as low molecular weight heparin (for example: Lovenox(R), Xaparin(R), Clexane(R) and Fragmin(R)). Performed By: #### H PVHRT #### [facility] CLIA [id number] [address] [place] [address] [place] Monosomy X risk Dosage of chromosome-specif ic cfDNA Ql (Plasma cell-free+WBC DNA) [Interp] Not detected Normal [facility] Comment on above: Order Comment: Speci men Type: FLUID SPECIMEN Ordering Facility: [facility] Address: [address] [place] [address] Performed By: #### H PVHRT #### [facility] CLIA [id number] [address] [place] [address] NEGATIVE PREDICTIVE VALUE Note Normal [facility] Comment on above: Order Comment: Speci men Type: FLUID SPECIMEN Ordering Facility: [facility] Address: [address] [place] [address] Result Comment: The Negative Predictive Value (NPV) for trisomy 21, 18, and 13 is greater than 99%. The NPV for SCA and ESS cannot be calculated as SCA and ESS are only reported when an abnormality is detected. Performed By: #### H PVHRT #### [facility] CLIA [id number] [address] [place] [address] [place] PERFORMANCE CHARACTERISTICS Note Normal [facility] Comment on above: Order Comment: Speci men Type: FLUID SPECIMEN Ordering Facility: [facility] Address: [address] [place] [address] Result Comment: ! Sex ! Accuracy: 99.4% ! ! ! ! Region (associated syndrome) ! Est. Sens# ! Est. Spec ! ! ! ! Trisomy 21 (Down Syndrome) ! 99.1% ! 99.9% ! ! ! ! Trisomy 18 (Nunn Syndrome) ! >99.9% ! 99.6% ! ! ! ! Trisomy 13 (Patau Syndrome) ! 91.7% ! 99.7% ! ! ! ! Sex Chromosome Aneuploidies## ! 96.2% ! 99.7% ! ! ! * As reported in [facility] database nstd37 [https://www.ncbi.nlm.nih.gov/dbvar/studies/nstd37/ ] # Estimated Sensitivity. Sensitivity estimated across the observed size distribution of each syndrome [per [employer] database nstd37] and across the range of fractions observed in routine clinical NIPT. Actual sensitivity can also be influenced by other factors such as the size of the event, total sequence counts, amplification bias, or sequence bias. ## Dowd gestation only. Performed By: #### H PVHRT #### [facility] CLIA [id number] [address] [place] [address] [place] POSITIVE PREDICTIVE VALUE N/A Normal [facility] Comment on above: Order Comment: Speci men Type: FLUID SPECIMEN Ordering Facility: [facility] Address: [address] [place] [address] Performed By: #### H PVHRT #### [facility] CLIA [id number] [address] [place] [address] [place] Reference Lab Test Method Comment Normal [facility] Comment on above: Order Comment: Speci men Type: FLUID SPECIMEN Ordering Facility: [facility] Address: [address] [place] [address] Result Comment: See Notes Circulating cell-free DNA was purified from the plasma component of maternal blood. The extracted DNA was then converted into a genomic DNA library for aneuploidy analysis of chromosomes 21, 18, and 13 via next generation sequencing.[1] Optional findings based on the test order include sex chromosome aneuploidy (SCA)[2], and enhanced sequencing series (ESS)[3], which will only be reported on as an additional finding when an abnormality is detected. SCA testing includes information on X and Y representation, while ESS testing includes deletions in selected regions (22q, 15q, 11q, 8q, 5p, 4p, 1p) and trisomy of chromosomes 16 and 22. Performed By: #### H PVHRT #### [facility] CLIA [id number] [address] [place] [address] [place] Service comment (Unsp spec) [Interp] Comment Normal [facility] Comment on above: Order Comment: Speci men Type: FLUID SPECIMEN Ordering Facility: [facility] Address: [address] [place] [address] Result Comment: See Notes [employer] is a subsidiary of [employer], using the brand [employer]. This test was developed and its performance characteristics determined by [employer]. It has not been cleared or approved by the Food and Drug Administration. This laboratory is certified under the Clinical Laboratory Improvement Amendments (CLIA) as qualified to perform high complexity clinical laboratory testing and accredited by the [employer] ([employer]). If there is future clinical need for adding MaterniT GENOME testing, this specimen will be available until term. [facility] samples will not be retained beyond 60 days. [facility] patients will have to send a new sample for re-sequencing ([facility] Test Code: [id number]). Performed By: #### H PVHRT #### [facility] CLIA [id number] [address] [place] [address] [place] Sex Dosage of chromosome-specif ic cfDNA Nom (cfDNA) Comment Normal [facility] Comment on above: Order Comment: Speci men Type: FLUID SPECIMEN Ordering Facility: [facility] Address: [address] [place] [address] Result Comment: Cons istent with Female Performed By: #### H PVHRT #### [facility] CLIA [id number] [address] [place] [address] [place] Test performance information Art (Unsp spec) Comment Normal [facility] Comment on above: Order Comment: Speci men Type: FLUID SPECIMEN Ordering Facility: [facility] Address: [address] [place] [address] Result Comment: The performance characteristics of the MaterniT(R) 21 PLUS laboratory-developed test (LDT) have been determined in a clinical validation study with women at increased risk for chromosomal aneuploidy.[1-4] Performed By: #### H PVHRT #### [facility] CLIA [id number] [address] [place] [address] [place] Trisomy 13 risk Dosage of chromosome-specif ic cfDNA Ql (cfDNA) [Interp] Negative Normal [facility] Comment on above: Order Comment: Speci men Type: FLUID SPECIMEN Ordering Facility: [facility] Address: [address] [place] [address] Performed By: #### H PVHRT #### [facility] CLIA [id number] [address] [place] [address] OF [place] Trisomy 18 risk Dosage of chromosome-specif ic cfDNA Ql (Plasma cell-free+WBC DNA) [Interp] Negative Normal [facility] Comment on above: Order Comment: Speci men Type: FLUID SPECIMEN Ordering Facility: [facility] Address: [address] [place] [address] Performed By: #### H PVHRT #### [facility] CLIA [id number] [address] [place] [address] [place] PAP TESTon 01-31-2025 ADEQUACY Normal [facility] Comment on above: Order Comment: Speci men Type: FLUID SPECIMEN Ordering Facility: [facility] Address: [address] [place] [address] Result Comment: Sati sfactory for interpretation. Transformation zone present Performed By: #### L [id number] #### [facility] CLIA [id number] [address] [place], [place] [address] [place] CASE REPORT Normal [facility] Comment on above: Order Comment: Speci men Type: FLUID SPECIMEN Ordering Facility: [facility] Address: [address] [place] [address] Result Comment: Gyne cologic Cytology Report Case: [id number] Authorizing Provider: Christine Vanegas APRN.CNM Collected: 01/31/2025 09:48 AM Ordering Location: OB/Gynecology Received: 01/31/2025 12:38 PM First Screen: Kristina Galloway CT, ASCP Specimen: Pap Test, ThinPrep, Cervix Performed By: #### L [id number] #### [facility] CLIA [id number] [address] [place] [address] [place] CLINICAL HISTORY, CYTOLOGY, PRECISION AGRONOMIST Routine Exam Normal [facility] Comment on above: Order Comment: Speci men Type: FLUID SPECIMEN Ordering Facility: [facility] Address: [address] [place] [address] Performed By: #### L [id number] #### [facility] CLIA [id number] [address] [place], [place] [address] [place] FINAL PERFORMING LAB Normal [facility] Comment on above: Order Comment: Speci men Type: FLUID SPECIMEN Ordering Facility: [facility] Address: [address] [place], [place] [address] Result Comment: Tech nical component, stores naval screening performed at: [facility], [address] [place] [id number] CLIA: [id number] Diagnostic interpretation performed at: [facility], [address] [place], [place] [address] CLIA# [id number] [place] Attendant: Magdaleno James MD Performed By: #### L [id number] #### [facility] CLIA [id number] [address] [place] [address] [place] INTERPRETATION, CYTOLOGY, PRECISION AGRONOMIST Normal [facility] Comment on above: Order Comment: Speci men Type: FLUID SPECIMEN Ordering Facility: [facility] Address: [address] [place] [address] Result Comment: Nega tive for intraepithelial lesion or malignancy. at 1355 EDT Performed By: #### L [id number] #### [facility] CLIA [id number] [address] [place] [address] [place] LMP 11/22/2024 Normal [facility] Comment on above: Order Comment: Speci men Type: FLUID SPECIMEN Ordering Facility: [facility] Address: [address] [place] [address] Performed By: #### L [id number] #### [facility] CLIA [id number] [address] [place] [address] [place] PAP DISCLAIMER COMMENT The Pap Smear is a screening test for cervical cancer. False negative results occur with all screening tests, emphasizing the need for rescreening at recommended intervals, and clinical correlation. Normal [facility] Comment on above: Order Comment: Speci men Type: FLUID SPECIMEN Ordering Facility: [facility] Address: [address] [place] [address] Performed By: #### L [id number] #### [facility] CLIA [id number] [address] [place], [place] [address] [place] PAP CHIP MIXER COMMENT This specimen has been analyzed by the [employer] System, an automated imaging and review system, which assists the laboratory in evaluating cells on ThinPrep Pap tests. Following automated imaging, selected cortes from every slide are reviewed by a stores naval. Normal [facility] Comment on above: Order Comment: Speci men Type: FLUID SPECIMEN Ordering Facility: [facility] Address: [address] [place] [address] Performed By: #### L [id number] #### [facility] CLIA [id number] [address] [place] [address] OF [place] POC CYBER THREAT ANALYST ULTRASOUNDon 02-01-20 25 Indication Viability; confirm cardiac activity Impression Single intrauterine gestational sac, CRL is appropriate for clinical dates, corresponding to DANIEL cardiac activity is visualized Recommendations Follow up for 1st Trimester Anatomy with Nuchal Translucency as clinically indicated if desired. Method Transvaginal ultrasound examination Dowd . Number of fetuses: 1 Dating LMP on: 11/22/2024 GA by LMP 10 w + 0 d DANIEL by LMP: 08/29/2025 Ultrasound examination on: 01/31/2025 GA by U/S based upon: CRL GA by U/S 10 w + 4 d DANIEL by U/S: 08/25/2025 Assigned: based on the LMP, selected on 01/31/2025 Assigned GA 10 w + 0 d Assigned DANIEL: 08/29/2025 Biometry Standard FHR 159 bpm 4% Nicolaides CRL 36.4 mm 10w 4d 87% Hadlock Assessment Gestational sac: visualized Location: intrauterine Yolk sac: visualized Embryo: visualized CRL 36.4 mm 10w 4d 87% Hadlock Cardiac activity: present FHR 159 bpm 4% Nicolaides General Evaluation Cardiac activity present. FHR 159 bpm Performed By: Christine Vanegas CNM Read By: Christine Vanegas CNM MATERNAL MEDICINE [facility] Study observation (narrative) [facility] RUBELLA IGG ANTIBODYon 01-31 RUBELLA IGG AB, QUAL Negative Abnormal Positive [facility] Comment on above: Order Comment: Speci men Type: FLUID SPECIMEN Ordering Facility: [facility] Address: [address] [place] [address] Result Comment: The result suggests no history of Rubella vaccination or exposure to Rubella virus, however, some individuals with past history of Rubella vaccination may test negative using this test as immunity to Rubella virus wanes over time after vaccination. Please correlate with vaccination history if applicable. Performed By: #### H PVHRT #### [facility] CLIA [id number] [address] [place] [address] [place] Reagin and Treponema pallidu m IgG and IgM [Interp]on 01-31-2025 T. pallidum IgG+IgM IA Ql (S) Non-Reactive Normal Nonreactive [facility] Comment on above: Order Comment: Speci men Type: BLOOD SPECIMEN Ordering Facility: [facility] Address: [address] [place] [address] Performed By: #### 5 195-3, 18534-0, 51053-6 #### [facility] CLIA [id number] [address] [place] [address] [place] Reagin+T pallidum IgG+IgM Se rPl-Impon 01-31-2025 Reagin and Treponema pallidum IgG and IgM [Interp] Cannot exclude recent Treponemal infection if specimen collected within 7-10 days after appearance of suspect lesions or 2-3 weeks after an exposure. Clinical correlation is required. Normal [facility] Comment on above: Order Comment: Speci men Type: BLOOD SPECIMEN Ordering Facility: [facility] Address: [address] [place] [address] Performed By: #### 5 195-3, 97131-1, 36867-0 #### [facility] CLIA [id number] [address] [place] [address] [place] TRICHOMONAS VAGINALIS NAATon 01-31-2025 T. vaginalis DNA CESAR+probe Ql (Unsp spec) Not detected Normal Not detected [facility] Comment on above: Order Comment: Speci men Type: BLOOD SPECIMEN Ordering Facility: [facility] Address: [address] [place] [address] Performed By: #### 5 5454-3 #### [facility] CLIA [id number] [address] [place] [address] [place] TYPE + SCREEN PRENATALon ABO O Normal [facility] Comment on above: Order Comment: Speci men Type: BLOOD SPECIMEN Ordering Facility: [facility] Address: [address] [place] [address] Performed By: #### T SPN #### [facility] CLIA [id number] [address] [place] [address] [place] Rh Nom (Bld) Positive Normal [facility] Comment on above: Order Comment: Speci men Type: BLOOD SPECIMEN Ordering Facility: [facility] Address: [address] [place] [address] Performed By: #### T SPN #### [facility] CLIA [id number] [address] [place] [address] [place] TYPE AND SCREEN EXPIRATION 02/03/2025 23:59 Normal [facility] Comment on above: Order Comment: Speci men Type: BLOOD SPECIMEN Ordering Facility: [facility] Address: [address] [place] [address] Performed By: #### T SPN #### [facility] CLIA [id number] [address] [place] [address] [place] B-HCG SerPl-aCncon 5 HCG.beta subunit Qn 539371.6 m[IU]/mL High <3.0 [facility] Comment on above: Order Comment: Speci men Type: BLOOD SPECIMEN Ordering Facility: [facility] Address: [address] [place] [address] Result Comment: REYNA HOFFMAN COMMENTS Less than 5 mIU/mL NEGATIVE FOR 5-25 mIU/mL BORDERLINE; RETEST IN 48 HOURS IF INDICATED Greater than 25 mIU/mL POSITIVE FOR QUANTITATIVE HCG NORMAL RANGES Weeks of Gestation (Weeks Since LMP) 3-4 Weeks (9-130 mIU/mL) 4-5 Weeks (75-2600 mIU/mL) 5-6 Weeks (850-76469 mIU/mL) 6-7 Weeks (4000-044979 mIU/mL) 7-12 Weeks (76451-805707 mIU/mL) 12-16 Weeks (25886-252895 mIU/mL) 16-29 Weeks (1400-10277 mIU/mL) 29-41 Weeks (940-25929 mIU/mL) These ranges are from published literature and may not be appropriate for all cases. When HCG levels are above 4000 mIU/mL, distinction between normal and abnormal is poor. The rate of change (doubling time) may be helpful. (Reference: NCCLS ) Performed By: #### 3 040-3, 47974-7, 52193-0 #### [facility] CLIA [id number] [address] [place] [address] [place] CBC W Auto Differential pane l (Bld)on 01-10-2025 Basophils (Bld) [#/Vol] 0.03 10*3/uL Normal <0.11 [facility] Comment on above: Order Comment: Speci men Type: BLOOD SPECIMEN Ordering Facility: [facility] Address: [address] [place] [address] Performed By: #### 5 7021-8 #### [facility] CLIA [id number] [address] [place] [address] [place] Basophils/100 WBC (Bld) 0.6 % Normal [facility] Comment on above: Order Comment: Speci men Type: BLOOD SPECIMEN Ordering Facility: [facility] Address: [address] [place] [address] Performed By: #### 5 7021-8 #### [facility] CLIA [id number] [address] [place] [address] [place] Differential cell count method Nom (Bld) Auto Normal [facility] Comment on above: Order Comment: Speci men Type: BLOOD SPECIMEN Ordering Facility: [facility] Address: [address] [place] [address] Performed By: #### 5 7021-8 #### [facility] CLIA [id number] [address] [place] [address] [place] Eosinophils (Bld) [#/Vol] 0.13 10*3/uL Normal <0.46 [facility] Comment on above: Order Comment: Speci men Type: BLOOD SPECIMEN Ordering Facility: [facility] Address: [address] [place] [address] Performed By: #### 5 7021-8 #### [facility] CLIA [id number] [address] [place] [address] [place] Eosinophils/100 WBC (Bld) 2.8 % Normal [facility] Comment on above: Order Comment: Speci men Type: BLOOD SPECIMEN Ordering Facility: [facility] Address: [address] [place] [address] Performed By: #### 5 7021-8 #### [facility] CLIA [id number] [address] [place] [address] [place] Erythrocyte distribution width (RBC) [Ratio] 11.5 % Normal 11.5-15.0 [facility] Comment on above: Order Comment: Speci men Type: BLOOD SPECIMEN Ordering Facility: [facility] Address: [address] [place] [address] Performed By: #### 5 7021-8 #### [facility] CLIA [id number] [address] [place] [address] [place] Hematocrit (Bld) [Volume fraction] 36.6 % Normal 36.0-46.0 [facility] Comment on above: Order Comment: Speci men Type: BLOOD SPECIMEN Ordering Facility: [facility] Address: [address] [place] [address] Performed By: #### 5 7021-8 #### [facility] CLIA [id number] [address] [place] [address] [place] Hemoglobin (Bld) [Mass/Vol] 12.5 g/dL Normal 11.5-15.5 [facility] Comment on above: Order Comment: Speci men Type: BLOOD SPECIMEN Ordering Facility: [facility] Address: [address] [place] [address] Performed By: #### 5 7021-8 #### [facility] CLIA [id number] [address] [place] [address] [place] Immature granulocytes (Bld) [#/Vol] 10*3/uL Normal <0.10 [facility] Comment on above: Order Comment: Speci men Type: BLOOD SPECIMEN Ordering Facility: [facility] Address: [address] [place] [address] Performed By: #### 5 7021-8 #### [facility] CLIA [id number] [address] [place] [address] [place] Immature granulocytes/100 WBC (Bld) 0.2 % Normal [facility] Comment on above: Order Comment: Speci men Type: BLOOD SPECIMEN Ordering Facility: [facility] Address: [address] [place] [address] Performed By: #### 5 7021-8 #### [facility] CLIA [id number] [address] [place] [address] [place] Lymphocytes (Bld) [#/Vol] 1.25 10*3/uL Normal 1.00-4.00 [facility] Comment on above: Order Comment: Speci men Type: BLOOD SPECIMEN Ordering Facility: [facility] Address: [address] [place] [address] Performed By: #### 5 7021-8 #### [facility] CLIA [id number] [address] [place] [address] [place] Lymphocytes/100 WBC (Bld) 26.8 % Normal [facility] Comment on above: Order Comment: Speci men Type: BLOOD SPECIMEN Ordering Facility: [facility] Address: [address] [place] [address] Performed By: #### 5 7021-8 #### [facility] CLIA [id number] [address] [place] [address] [place] MCH (RBC) [Entitic mass] 32.8 pg Normal 26.0-34.0 [facility] Comment on above: Order Comment: Speci men Type: BLOOD SPECIMEN Ordering Facility: [facility] Address: [address] [place] [address] Performed By: #### 5 7021-8 #### [facility] CLIA [id number] [address] [place] [address] [place] MCHC (RBC) [Mass/Vol] 34.2 g/dL Normal 30.5-36.0 [facility] Comment on above: Order Comment: Speci men Type: BLOOD SPECIMEN Ordering Facility: [facility] Address: [address] [place] [address] Performed By: #### 5 7021-8 #### [facility] CLIA [id number] [address] [place] [address] [place] MCV (RBC) [Entitic vol] 96.1 fL Normal 80.0-100.0 [facility] Comment on above: Order Comment: Speci men Type: BLOOD SPECIMEN Ordering Facility: [facility] Address: [address] [place] [address] Performed By: #### 5 7021-8 #### [facility] CLIA [id number] [address] [place] [address] [place] Monocytes (Bld) [#/Vol] 0.79 10*3/uL Normal <0.87 [facility] Comment on above: Order Comment: Speci men Type: BLOOD SPECIMEN Ordering Facility: [facility] Address: [address] [place] [address] Performed By: #### 5 7021-8 #### [facility] CLIA [id number] [address] [place] [address] [place] Monocytes/100 WBC (Bld) 16.9 % Normal [facility] Comment on above: Order Comment: Speci men Type: BLOOD SPECIMEN Ordering Facility: [facility] Address: [address] [place] [address] Performed By: #### 5 7021-8 #### [facility] CLIA [id number] [address] [place] [address] [place] Neutrophils (Bld) [#/Vol] 2.46 10*3/uL Normal 1.45-7.50 [facility] Comment on above: Order Comment: Speci men Type: BLOOD SPECIMEN Ordering Facility: [facility] Address: [address] [place] [address] Performed By: #### 5 7021-8 #### [facility] CLIA [id number] [address] [place] [address] [place] Neutrophils/100 WBC (Bld) 52.7 % Normal [facility] Comment on above: Order Comment: Speci men Type: BLOOD SPECIMEN Ordering Facility: [facility] Address: [address] [place] [address] Performed By: #### 5 7021-8 #### [facility] CLIA [id number] [address] [place] [address] [place] Nucleated RBC (Bld) [#/Vol] 10*3/uL Normal <0.01 [facility] Comment on above: Order Comment: Speci men Type: BLOOD SPECIMEN Ordering Facility: [facility] Address: [address] [place] [address] Performed By: #### 5 7021-8 #### [facility] CLIA [id number] [address] [place] [address] [place] Nucleated RBC/100 WBC (Bld) [Ratio] 0.0 /100 WBC Normal [facility] Comment on above: Order Comment: Speci men Type: BLOOD SPECIMEN Ordering Facility: [facility] Address: [address] [place] [address] Performed By: #### 5 7021-8 #### [facility] CLIA [id number] [address] [place] [address] [place] Platelet mean volume (Bld) [Entitic vol] 9.3 fL Normal 9.0-12.7 [facility] Comment on above: Order Comment: Speci men Type: BLOOD SPECIMEN Ordering Facility: [facility] Address: [address] [place] [address] Performed By: #### 5 7021-8 #### [facility] CLIA [id number] [address] [place], [place] [address] [place] Platelets (Bld) [#/Vol] 206 10*3/uL Normal 150-400 [facility] Comment on above: Order Comment: Speci men Type: BLOOD SPECIMEN Ordering Facility: [facility] Address: [address] [place] [address] Performed By: #### 5 7021-8 #### [facility] CLIA [id number] [address] [place] [address] [place] RBC (Bld) [#/Vol] 3.81 10*6/uL Low 3.90-5.20 [facility] Comment on above: Order Comment: Speci men Type: BLOOD SPECIMEN Ordering Facility: [facility] Address: [address] [place] [address] Performed By: #### 5 7021-8 #### [facility] CLIA [id number] [address] [place] [address] [place] WBC (Bld) [#/Vol] 4.67 10*3/uL Normal 3.70-11.00 [facility] Comment on above: Order Comment: Speci men Type: BLOOD SPECIMEN Ordering Facility: [facility] Address: [address] [place] [address] Performed By: #### 5 7021-8 #### [facility] CLIA [id number] [address] [place], [place] [address] [facility] [place] Comprehensive metabolic 2000 panelon 01-10-2025 Albumin [Mass/Vol] 3.7 g/dL Normal 3.2-5.0 [facility] Comment on above: Order Comment: Speci men Type: BLOOD SPECIMEN Ordering Facility: [facility] Address: [address] [place] [address] Performed By: #### 3 040-3, 13138-8, 41816-7 #### [facility] CLIA [id number] [address] [place] [address] [place] ALP [Catalytic activity/Vol] 44 U/L Low 45-117 [facility] Comment on above: Order Comment: Speci men Type: BLOOD SPECIMEN Ordering Facility: [facility] Address: [address] [place] [address] Performed By: #### 3 040-3, , #### [facility] CLIA [id number] [address] [place] [address] [place] ALT [Catalytic activity/Vol] 14 U/L Normal 13-61 [facility] Comment on above: Order Comment: Speci men Type: BLOOD SPECIMEN Ordering Facility: [facility] Address: [address] [place] [address] Result Comment: Resu lts may be falsely depressed after the administration of Sulfasalazine and/or Sulfapyridine. Performed By: #### 3 040-3, , #### [facility] CLIA [id number] [address] [place], [place] [address] [place] Anion gap [Moles/Vol] 7 mmol/L Normal 5-16 [facility] Comment on above: Order Comment: Speci men Type: BLOOD SPECIMEN Ordering Facility: [facility] Address: [address] [place] [address] Performed By: #### 3 040-3, , #### [facility] CLIA [id number] [address] [place], [place] [address] [place] AST [Catalytic activity/Vol] 21 U/L Normal 8-34 [facility] Comment on above: Order Comment: Speci men Type: BLOOD SPECIMEN Ordering Facility: [facility] Address: [address] [place] [address] Result Comment: Resu lts may be falsely depressed after the administration of Sulfasalazine and/or Sulfapyridine. Performed By: #### 3 040-3, , #### [facility] CLIA [id number] [address] [place], [place] [address] [place] Bilirubin [Mass/Vol] 0.2 mg/dL Normal 0.2-1.0 [facility] Comment on above: Order Comment: Speci men Type: BLOOD SPECIMEN Ordering Facility: [facility] Address: [address] [place] [address] Performed By: #### 3 040-3, , #### [facility] CLIA [id number] [address] [place], [place] [address] [place] Calcium [Mass/Vol] 9.3 mg/dL Normal 8.5-10.5 [facility] Comment on above: Order Comment: Speci men Type: BLOOD SPECIMEN Ordering Facility: [facility] Address: [address] [place] [address] Performed By: #### 3 040-3, , #### [facility] CLIA [id number] [address] [place] [address] [place] Chloride [Moles/Vol] 103 mmol/L Normal 98-107 [facility] Comment on above: Order Comment: Speci men Type: BLOOD SPECIMEN Ordering Facility: [facility] Address: [address] [place] [address] Performed By: #### 3 040-3, , #### [facility] CLIA [id number] [address] [place] [address] [place] CO2 [Moles/Vol] 25 mmol/L Normal 21-32 [facility] Comment on above: Order Comment: Speci men Type: BLOOD SPECIMEN Ordering Facility: [facility] Address: [address] [place] [address] Performed By: #### 3 040-3, , #### [facility] CLIA [id number] [address] [place], [place] [address] [place] Creatinine [Mass/Vol] 0.70 mg/dL Normal 0.51-0.95 [facility] Comment on above: Order Comment: Speci men Type: BLOOD SPECIMEN Ordering Facility: [facility] Address: [address] [place] [address] Result Comment: Joi ents receiving either N-Acetylcysteine (NAC) or Metamizole prior to venipuncture, may have falsely depressed results. Performed By: #### 3 040-3, 73824-2, 36559-5 #### [facility] CLIA [id number] [address] [place], [place] [address] [place] Creatinine and Glomerular filtration rate.predicted panel (S/P/Bld) 119 mL/min/1.73m??? Normal >=60 [facility] Comment on above: Order Comment: Sylvester childs Type: BLOOD SPECIMEN Ordering Facility: [facility] Address: [address] [place] [address] Result Comment: Tracey mated Glomerular Filtration Rate (eGFR) is calculated using the 2020 CKD-EPI creatinine equation. This equation utilizes serum creatinine, sex, and age as parameters. The creatinine assay has traceable calibration to isotope dilution-mass spectrometry. Refer to KDIGO guidelines for clinical interpretation. In patients with unstable renal function, e.g. those with acute kidney injury, the eGFR may not accurately reflect actual GFR. Performed By: #### 3 040-3, 90459-2, 59114-3 #### [facility] CLIA [id number] [address] [place] [address] [place] Glucose [Mass/Vol] 79 mg/dL Normal 70-100 [facility] Comment on above: Order Comment: Sylvester childs Type: BLOOD SPECIMEN Ordering Facility: [facility] Address: [address] [place] [address] Result Comment: The [place] [employer] (ADA) provides guidance for cutoff values for fasting glucose and random glucose. The ADA defines fasting as no caloric intake for at least 8 hours. Fasting plasma glucose results between 100 to 125 mg/dL indicate increased risk for diabetes (prediabetes). Fasting plasma glucose results greater than or equal to 126 mg/dL meet the criteria for diagnosis of diabetes. In the absence of unequivocal hyperglycemia, results should be confirmed by repeat testing. In a patient with classic symptoms of hyperglycemia or hyperglycemic crisis, random plasma glucose results greater than or equal to 200 mg/dL meet the criteria for diagnosis of diabetes. Reference: Standards of Medical Care in Diabetes 2016, [place] [employer]. Diabetes Care. 2016.39(Suppl 1). Results may be falsely elevated after the administration of Sulfapyridine. Results may be falsely depressed after the administration of Sulfasalazine. Performed By: #### 3 040-3, , #### [facility] CLIA [id number] [address] [place], [place] [address] [place] Potassium [Moles/Vol] 3.7 mmol/L Normal 3.5-5.1 [facility] Comment on above: Order Comment: Speci men Type: BLOOD SPECIMEN Ordering Facility: [facility] Address: [address] [place] [address] Performed By: #### 3 040-3, , #### [facility] CLIA [id number] [address] [place] [address] [place] Protein [Mass/Vol] 6.7 g/dL Normal 6.0-8.5 [facility] Comment on above: Order Comment: Speci men Type: BLOOD SPECIMEN Ordering Facility: [facility] Address: [address] [place] [address] Performed By: #### 3 040-3, , #### [facility] CLIA [id number] [address] [place] [address] [place] Sodium [Moles/Vol] 135 mmol/L Low 136-145 [facility] Comment on above: Order Comment: Speci men Type: BLOOD SPECIMEN Ordering Facility: [facility] Address: [address] [place] [address] Performed By: #### 3 040-3, , #### [facility] CLIA [id number] [address] [place], [place] [address] [place] Urea nitrogen [Mass/Vol] 9 mg/dL Normal 7-26 [facility] Comment on above: Order Comment: Speci men Type: BLOOD SPECIMEN Ordering Facility: [facility] Address: [address] [place] [address] Performed By: #### 3 040-3, , #### [facility] CLIA [id number] [address] [place], [place] [address] [place] ED NOTEon 01-10-2025 ED NOTE HNO ID: [id number] Author: KVNG ANAYA, VIRGILIO Service: ? Author Type: Registered Nurse Type: ED Notes Filed: 01/10/2025 20:27 Note Text: Pt requested that IV be removed, so she can go home. 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 Has had this happen before. Has not had a bowel movement in [address] Amezquita but cannot get in and cannot get in with her PCP. Patient believes she may be approximately 5 weeks . Last menstrual cycle November 30. She states that she had a couple negative test but then a positive test potentially. She states that she has occasional nausea and vomiting as well. No abdominal pain. BRIEF EXAM: NAD Awake and Alert Non labored breathing No focal neurological deficits Will defer imaging studies at this time until test results. INITIAL WORKUP AND DECISION MAKING: Orders Placed This Encounter CBC with Diff Comprehensive Metabolic Panel Lipase Blood Urinalysis w Microscopic, reflex Culture HCG Quantitative NaCl 0.9% iv flush bag SIGNATURE: Aayush Fernandez PA-C Normal [facility] Lipase SerPl-cCncon 01-11-20 25 Lipase [Catalytic activity/Vol] 43 U/L Normal 12-60 [facility] Comment on above: Order Comment: Speci men Type: BLOOD SPECIMEN Ordering Facility: [facility] Address: [address] [place] [address] [place] [address] Performed By: #### 3 040-3, 43173-9, 66474-5 #### [facility] CLIA [id number] [address] [place], [place] [address] [place] US PREG TRANSVAG <14 WEEKSon 01-10-2025 US PREG TRANSVAG <14 WEEKS * * *Final Report* * * DATE OF EXAM: Jan 10 2025 5:20PM RHU 1034 - US PREG TRANSVAG <14 WEEKS / PROCEDURE REASON: Pelvic pain, positive beta-HCG, communication spec etiology suspected * * * * Physician Interpretation * * * * EXAMINATION: FIRST TRIMESTER TRANSVAGINAL PELVIC ULTRASOUND CLINICAL HISTORY: Pelvic pain. Positive beta-HCG - [id number]. Gestational age by last menstrual period, 7 weeks. TECHNIQUE: Sonography of the pelvis was performed by transvaginal techniques. Images were obtained and stored in a permanent archive. COMPARISON: None. RESULT: Uterus: Possible bicornuate configuration - Orientation: Anteverted - Size: 9.8 x 5.0 x 7.7 cm - Myometrium: Homogeneous echogenicity. Small probable fibroid measuring 0.7 cm in the left posterior uterus Cervix: Closed with no funneling. Endometrium: Intrauterine gestational sac with embryo as below. Gestation: - Definitive gestational sac: Present - Gestational sac location: Normal location within the upper 2/3 of the uterine cavity - Mean Sac Diameter: 3.4 cm, corresponding gestational age 8 week 4 days - Amnion: Single amnion present - Embryo: Single present - Mobridge rump length: 1.3 cm, corresponding gestational age 7 weeks, 3 days -Cardiac activity: present 148 bpm Subgestational hematoma: Present, ill-defined heterogeneous area in the lower uterine body, abutting the gestation sac, measuring 2.2 x 1.5 x 1.5 cm Right ovary: 3.6 x 2.1 x 2.9 cm - Normal sonographic appearance with physiologic follicles and a corpus luteum. Doppler imaging showed normal arterial and venous flow throughout the ovary. Left ovary: Not visualized Pelvis free fluid: Small anechoic fluid present, likely physiologic Impression: Single intrauterine with cardiac activity. Moderate subgestational hematoma. 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 Left ovary is not visualized. Estimated Gestational Age: 7 weeks, 3 days by crown rump length. 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: [employer] Transcribe Date/Time: Jan 10 2025 6:24P Dictated by : COURTNEY MORALES MD This examination was interpreted and the report reviewed and electronically signed by: COURTNEY MORALES MD on Jan 10 2025 6:39PM EST [id number] Normal [facility] Urinalysis complete panel (U )on 01-10-2025 Bacteria LM.HPF (Urine sed) [#/Area] Few Abnormal None Seen [facility] Comment on above: Order Comment: Speci men Type: URINE SPECIMEN Ordering Facility: [facility] Address: [address] [place] [address] Performed By: #### 2 4356-8 #### [facility] CLIA [id number] [address] [place] [address] [place] Bilirubin Ql (U) Negative Normal Negative [facility] Comment on above: Order Comment: Speci men Type: URINE SPECIMEN Ordering Facility: [facility] Address: [address] [place] [address] Performed By: #### 2 4356-8 #### [facility] CLIA [id number] [address] [place] [address] [place] Clarity (Unsp spec) Clear Normal Clear [facility] Comment on above: Order Comment: Speci men Type: URINE SPECIMEN Ordering Facility: [facility] Address: [address] [place] [address] Performed By: #### 2 4356-8 #### [facility] CLIA [id number] [address] [place] [address] [place] Color (U) Yellow Normal Yellow [facility] Comment on above: Order Comment: Speci men Type: URINE SPECIMEN Ordering Facility: [facility] Address: [address] [place] [address] Performed By: #### 2 4356-8 #### [facility] CLIA [id number] [address] [place] [address] [place] Epithelial cells LM.HPF (Urine sed) [#/Area] Few Normal [facility] Comment on above: Order Comment: Speci men Type: URINE SPECIMEN Ordering Facility: [facility] Address: [address] [place] [address] Performed By: #### 2 4356-8 #### [facility] CLIA [id number] [address] [place] Glucose Test strip (U) [Mass/Vol] Negative Normal Negative [facility] Comment on above: Order Comment: Speci men Type: URINE SPECIMEN Ordering Facility: [facility] Address: [address] [place] [address] Performed By: #### 2 4356-8 #### [facility] CLIA [id number] [address] [place] [address] [place] Hemoglobin Ql (U) Negative Normal Negative [facility] Comment on above: Order Comment: Speci men Type: URINE SPECIMEN Ordering Facility: [facility] Address: [address] [place] [address] Performed By: #### 2 4356-8 #### [facility] CLIA [id number] [address] [place] [address] [place] Ketones Ql (U) Negative Normal Negative [facility] Comment on above: Order Comment: Speci men Type: URINE SPECIMEN Ordering Facility: [facility] Address: [address] [place] [address] Performed By: #### 2 4356-8 #### [facility] CLIA [id number] [address] [place] [address] [place] Leukocyte esterase Test strip Ql (U) Negative Normal Negative [facility] Comment on above: Order Comment: Speci men Type: URINE SPECIMEN Ordering Facility: [facility] Address: [address] [place] [address] Performed By: #### 2 4356-8 #### [facility] CLIA [id number] [address] [place] [address] [place] Nitrite Ql (U) Negative Normal Negative [facility] Comment on above: Order Comment: Speci men Type: URINE SPECIMEN Ordering Facility: [facility] Address: [address] [place] [address] Performed By: #### 2 4356-8 #### [facility] CLIA [id number] [address] [place] [address] [place] pH (U) 6.0 [pH] Normal 5.0-8.0 [facility] Comment on above: Order Comment: Speci men Type: URINE SPECIMEN Ordering Facility: [facility] Address: [address] [place] [address] Performed By: #### 2 4356-8 #### [facility] CLIA [id number] [address] [place] [address] Protein (U) [Mass/Vol] Negative Normal Negative [facility] Comment on above: Order Comment: Speci men Type: URINE SPECIMEN Ordering Facility: [facility] Address: [address] [place] [address] Performed By: #### 2 4356-8 #### [facility] [facility] CLIA [id number] [address] [place] [address] [place] RBC LM.HPF (Urine sed) [#/Area] 0-3 /HPF Normal 0-3 /HPF [facility] Comment on above: Order Comment: Speci men Type: URINE SPECIMEN Ordering Facility: [facility] Address: [address] [place] [address] Performed By: #### 2 4356-8 #### [facility] CLIA [id number] [address] [place] [address] Specific gravity (U) [Rel density] 1.019 Normal 1.005-1.030 [facility] Comment on above: Order Comment: Speci men Type: URINE SPECIMEN Ordering Facility: [facility] Address: [address] [place] [address] Performed By: #### 2 4356-8 #### [facility] CLIA [id number] [address] [place] [address] [place] Urobilinogen Ql (U) Negative Normal Negative [facility] Comment on above: Order Comment: Speci men Type: URINE SPECIMEN Ordering Facility: [facility] Address: [address] [place] [address] Performed By: #### 2 4356-8 #### [facility] CLIA [id number] [address] WBC LM.HPF (Urine sed) [#/Area] 0-5 /HPF Normal 0-5 /HPF [facility] Comment on above: Order Comment: Speci men Type: URINE SPECIMEN Ordering Facility: [facility] Address: [address] [place] [address] Performed By: #### 2 4356-8 #### [facility] CLIA [id number] [address] Pneumatic Press Hand Cytology Reporton 2017 Pneumatic Press Hand Cytology Report . Pathology ReportsAccession: Collected Date/Time: Received Date/Time: Pathologist:[id number] 05/17/2018 09:38 EDT 05/17/2018 18:00 EDT P[employer] Hand Cytology ReportSPECIMEN:Specimen Description: Liquid Prep Reflex ASCUSSpecimen: Cervical/EndocervicalScreenin g or Diagnostic: ScreeningRELEVANT HISTORY:LMP: 05/03/2018SPECIMEN ADEQUACY:SATISFACTORY FOR EVALUATIONENDOCERVICAL/TRANSF ORMATIONAL ZONE COMPONENT ABSENT/INSUFFICIENTINTERPRETA TION/RESULTS:NEGATIVE FOR INTRAEPITHELIAL LESION OR MALIGNANCYElectronically Signed byPathology report verified by Flower Hospitalcreened by: LSElectronically signed by Maria Fernanda HODGE (ASCP)Sign-Out Date: 05/19/2018 14:33Performing Lab: [facility], [address] [place], [place] [address]DisclaimerThe Pap test is a screening test for cervical cancer. As evidenced by published data, it is subject to both inherent false negative and false positive results. Your patient's results should be interpreted in context with pertinent clinical history including gynecological examination. Normal [facility] ([place]) Comment on above: Performed By: #### G YCR ####[place] [address] CTPCRon 05-18-2018 C. trachomatis Interp Normal See CT Interp N [facility] ([place]) Comment on above: Result Comment: C. t rachomatis DNA not detected. Specimen is presumptive negative for C. trachomatis. A negative result does not preclude C. trachomatis infection because results depend on adequate specimen collection, absence of inhibitors, and sufficient DNA to be detected.See CT Interp N Performed By: #### C TPCR, NGPCR1 ####[address] [address] C.trachomatis PCR Negative Normal Negative [facility] ([place]) Comment on above: Result Comment: Mole miteshar (PCR) assay performed on the Lesli Linda 4800 system. Performed By: #### C TPCR, NGPCR1 ####[address] [address] Chlam Source Cervix Normal [facility] ([place]) Comment on above: Performed By: #### C TPCR, NGPCR1 ####[address] [address] NGPCRon 05-18-2018 GC PCR Source Cervix Normal [facility] ([place]) Comment on above: Performed By: #### C TPCR, NGPCR1 ####[address] [address] N. gonorrhoeae (PCR) Negative Normal Negative [facility] ([place]) Comment on above: Result Comment: Mole cular (PCR) assay performed on the Lesli Linda 4800 System. Performed By: #### C TPCR, NGPCR1 ####[place] [address] N. gonorrhoeae Interp Normal See NG Interp N [facility] ([place]) Comment on above: Result Comment: N. g onorrhoeae DNA not detected. Specimen is presumptive negative for N. gonorrhoeae. A negative result does not preclude Neisseria gonorrhoeae infection because results depend on adequate specimen collection, absence of inhibitors, and sufficient DNA to be detected.See NG Interp N Performed By: #### C TPCR, NGPCR1 ####[address] [address] ALC ETHANOLon 07-10-2017 ALC ETHANOL 0.29 GM/DL High LESS THN 0.01 [facility] [place] Comment on above: Order Comment: Joss s: M Performed By: #### L 500.35431, L500.15535, L530.76102 ####[facility] UUQQFNHYFT6187 [place], [place] [address]Ld# [phone] BMPon 07-10-2017 Anion gap 6 mmol/L Normal 5-[address] [facility] Comment on above: Order Comment: Campu s: M Performed By: #### L 500.39673, L500.81870, L530.95295 ####[facility] QMWSVZMGZX8963 [place], [place] [address]Ye# [phone] BUN/Creatinine Ratio 11 mg/mg Low 15-[address] [facility] Comment on above: Order Comment: Campu s: M Performed By: #### L 500.29434, L500.19664, L530.81283 ####[facility] CDMMVVVWMD2726 [place], [place] [address]Mv# [phone] Calcium 8.5 mg/dL Normal 8.5-10.[address] [facility] Comment on above: Order Comment: Campu s: M Performed By: #### L 500.26917, L500.99463, L530.86889 ####[facility] DGXDOIUIAN1563 [place], [place] [address]Jt# [phone] Chloride 110 mmol/L High 98-[address] [facility] Comment on above: Order Comment: Campu s: M Performed By: #### L 500.64353, L500.08916, L530.24199 ####[facility] ITWORAOPAS9997 [place], [place] [address]Cl# [phone] CO2 29 mmol/L Normal 21-[address] [facility] Comment on above: Order Comment: Campu s: M Performed By: #### L 500.76244, L500.69145, L530.54818 ####[facility] XCTELDCWZJ2450 [place], [place] [address]Ks# [phone] Creatinine 0.666 mg/dL Normal 0.510-0.[address] [facility] Comment on above: Order Comment: Campu s: M Result Comment: Joi ents receiving either N-Acetylcysteine (NAC) orMetamizole prior to venipuncture, may have falsely depressedresults. Performed By: #### L 500.61369, L500.08075, L530.58785 ####[facility] IILXNSHYRC6792 [place], [place] [address]Bq# [phone] Glucose mass conc 84 mg/dL Normal 70-[address] [facility] Comment on above: Order Comment: Campu s: M Result Comment: 70-1 00-Normal Fasting; 895-163-Pkhbxakr Fasting; greaterthan 126 on more than one result-Diabetes. ADA guidelines Performed By: #### L 500.03660, L500.45894, L530.43872 ####[facility] JJPOHMTNFB1193 [place], [place] [address]Le# [phone] Potassium molar conc 4.0 mmol/L Normal 3.5-5.[address] [facility] Comment on above: Order Comment: Campu s: M Performed By: #### L 500.80848, L500.49185, L530.72147 ####[facility] OFUHFVGFEI9806 [place], [place] [address]Cr# [phone] Sodium 145 mmol/L Normal 136-[address] [facility] Comment on above: Order Comment: Campu s: M Performed By: #### L 500.44570, L500.99814, L530.02754 ####[facility] SWYECDDPUZ8938 [place], [place] [address]Af# [phone] Urea nitrogen 7 mg/dL Normal 7-[address] [facility] Comment on above: Order Comment: Campu s: M Performed By: #### L 500.67183, L500.05183, L530.89345 ####[facility] KAPZGKLRWT7636 [place], [place] [address]Mi# [phone] ED DOCon 07-10-2017 ED DOC PHYSICIAN ASSESSMENT =RECORDS: Discharge ReportEvent Time: 07/10/2017 01:04: FlexChartDataEvent Time: 07/10/2017 01:35[facility] [[id number]]Atte nding Uaxcyuczw80 / F / 1995Chart (V2b)Chart created at 07/10/2017 01:01 by Boogie Houston closed at 07/10/2017 01:03Entry in Emergency Department at 07/09/2017 22:49,departure at 07/10/2017 01:32Patient Name: Nicole Silva Record Number: [id number]: 07/10/2017 01:01Entered Department at: 07/09/2017 22:49 Patient Seen at:07/09/2017 23:11 Historian: Rody PatientChief Complaint:+ETOH, [place], +EMISISHistory of Present Illness:22-Year-old female comes in for evaluation. She passed outat a wedding. Shes been vomiting. Wasdrinking alcohol. Did not suffer any injuries as far as sheis able to tell me. She is significantlyintoxicated however. Her father is with her and is notaware that she fell or had any other injuries.Review of Systems. Unable to obtain ROS due to age, AMS oracuity.Past History, Medications, Allergies, Social History andFamily History reviewed in nurses note. [facility] PATIENT NAME: NICOLE SILVA [address] [facility] [address] MEDICAL REC #: [id number], [place] [address] DEPARTMENT CHART EMERGENCY DEPARTMENT PHYSICIANMedications: Reviewed RN Note.Allergies: Reviewed RN NoteSocial History: Reviewed RN Note.Family History: Reviewed RN NotePhysical Examination: General: Well Developed; somnolent,arousable, intoxicated, has been vomitingHEENT: she was equal reactive no external signs of headtrauma. Neck: Supple Respiratory: No RespDistress Cardio-Vascular: RRR Abdomen: Non-tender and SoftBack: Non-tender Extremity: No edema; no signof extremity injury Neurological: intoxicated but arousableSkin: Warm and Dry Psychological: intoxicatedALC ETHANOL, information as of 07/09/2017, 11:16 pmALC ETHANOL: 0.29 Gm/DlBMP, information as of 07/09/2017, 11:16 pm145 --------+--------+--------and lt; 84 Anion Gap = 64.0 BUN/CREA: 11; CALCIUM TOTAL: 8.5 Mg/DlUR DRUG ABUSE, information as of 07/09/2017, 11:24 pmNegative for: Urine Amphetamine, Barbiturates,Benzodiazepines, Cocaine, Phencyclidine, Opiates,CannabinoidsDRAB COMMENT: PndMedical Decision MakingThe patients alcohol level was quite elevated. She wasgiven IV fluids. The remaining lab studies andtox screen were unremarkable. She is remained clinicallystable. She is improved right now. She is moreawake and interactive that she was initially. I think atthis point she can safely be discharged homewith her father.Additional Information: Discussed Results, Diagnosis andFollow-Up with Patient and Family. [facility] PATIENT NAME: NICOLE SILVA [address] [facility] [address] MEDICAL REC #: [id number], [place] [address] DEPARTMENT CHART EMERGENCY DEPARTMENT PHYSICIANClinical Impression:1. acute alcohol intoxicationDisposition: Discharged .JONNATHAN completed.I was the primary ED attending..Patient transported to ED by EMS with medical direction bySCEP physician (not applicable for EMT squads).. at01:03 ===DISCHARGE REPORT===: Discharge ReportEvent Time: 07/10/2017 01:04Status: DraftReasons to Return to the ER:You must return to the ER for any new, worsening orchanging symptoms, or if you feel more ill or sick inany way. This is the most important thing to remember.Follow-up:The care you received in the ER was given on an emergencybasis only, and it is often not possible tocompletely treat or diagnose a problem in a single ERvisit. You must see your follow-up doctor for arecheck within a week unless you receive instructions witha different timeframe for follow-up. Pleasefollow all your discharge instructions.Medications:Unle ss the ER doctor tells you differently, you should takeall your regular medications and any newmedications prescribed today. Because it is not possiblefor the ER doctor to review all of yourmedication side effects or interactions, you must reviewpossible side effects and interactions with yourpharmacist when you get your prescriptions filled. [facility] PATIENT NAME: NICOLE SILVA [id number] [facility] [address] [facility] MEDICAL REC #: [id number], [place] [address] DEPARTMENT CHART EMERGENCY DEPARTMENT PHYSICIANEKG and Radiology Results:A sediment remediation consultant or radiologist will review any EKG orradiology results provided by the ER doctor. We willcontact you if the results in the final EKG or radiologyreports require a change in treatment.Culture Results:Cultures may have been ordered during your ER visit. Wewill contact you if the culture results require achange in treatment.Referrals:Most referrals to specialists come from the on-call listYou should make your regular doctor aware of anyreferrals before you schedule the appointment so that theyare aware and can make suggestionsDIAGNOSIS:acute alcohol intoxicationYOU MUST RETURN TO THE ER RIGHT AWAY FOR ANY OF THEFOLLOWING:New or increasing chest pain or shortnessof breathNew or increasing headache or confusionNew orincreasing abdominal pain or vomitingBlood appearsin the stool, vomit or urineYou pass out, have a seizure orstart having hallucinationsMEDICATIONSWe have given you these prescriptions that you must filland start taking:NoneMy signature below indicates that I have received andunderstand the oral instructions regarding mymedical problem. I also acknowledge receipt of this writteninstruction sheet including a list of majortests and procedures ordered during my visit. I willarrange for follow-up care as indicated by theseinstructions and referrals. [facility] PATIENT NAME: NICOLE SILVA [address] [facility] [address] MEDICAL REC #: [id number], [place] [address] DEPARTMENT CHART EMERGENCY DEPARTMENT PHYSICIANThis signed original will be kept in my medical record.Your signature below indicates consent for Case Managementto contact [facility]care providers in [facility] to meet your ongoing healthcare needs. This willallow forcontinuity of care once you leave theEmergency Department. This exchange of informationwillinclude, but not be limited to, disclosure of yourpatient information and possible release of records. :FlexChartDataEvent Time: 07/10/2017 01:35 DEMO GRAPHICS E mergisoft Patient: NICOLE Walkerx: FDOB: 1995Age: 22 yrAccount No: [id number]: [id number] Date: 22:49 07/09/2017Address: [address] [place]: [place] [address] FKSQ STRATION E D Number: [id number]: mothers Bobby Name: Arsalan Status: SFinancial Class: PPO TRIAGE Priority: 3 - UrgentComplaint: Alcohol Intoxication, AcuteStated Complaint: +ETOH, P[place]ED [place],+EMISISArrival Date: 07/09/2017 22:49Triage Date: 07/09/2017 22:50Mode of Arrival: AmbulanceWC: NLanguage: Venezuelan [facility] PATIENT NAME: NICOLE SILVA [address] [facility] [address] MEDICAL REC #: [id number], [place] [address] DEPARTMENT CHART EMERGENCY DEPARTMENT PHYSICIANTransport: [facility] BED=== A06 In: 07/09/2017 22:52:07 07/09/201722:52:07 ARABELLA06 (Removed From) Out: 07/10/2017 01:32:561 01:32:56 SNC PROVID ERS [facility] Provider Contact:07/09/2017 22:55:09 EMSEnd:VIRGILIO ACEVES Provider Contact: 07/09/201722:55:37 Jamel:MD Boogie Garcia Provider Contact: 07/09/201723:11:24 GJJEnd: TR IAGE HISTORY AL LERGIESAllergic To: No Known Allergies - 07/09/201722:52 KRLCURRENT MEDSName: None 07/09/2017 22:55 KRLILLNESSIllness: *None 07/09/2017 22:52 KRLPAST SURGERY HISTSurgery: None 07/09/2017 22:52 KRLPAST SOCIAL HISTSocial History: Communicates without difficulty [facility] PATIENT NAME: NICOLE SILVA [address] [facility] [address] [facility] REC #: [id number], [place] [address] DEPARTMENT CHART EMERGENCY DEPARTMENT TVQBDFQEV70/07/2017 22:52 KRLSocial History: Lives with family or significant other07/09/2017 22:52 KRLSocial History: Do any of the patients care giverssmoke? n 07/09/2017 22:52 KRLIMMUNIZATIONSImmunization: *Immunizations current 07/09/2017 22:52KRL N URSING ASSESSMENT ASSESSME NT NOTES 04/2017 23:02 report per squad and father, patientpresents by squad from wedding with reportedly drinking toomuch ETOH. patient had multiple emisis on the ride in.smiling and opening eyes with asking. nods to answerquestions. wpd. lungs cta aandamp;p. normal heart sounds. noedema noted. resting in bed with basin and father atbedside 07/09/2017 23:04 KRL1 00:37 [facility]. patient speech is not coherent but is clear. patientsmiling. back in bed with father at bedside. rails up x207/10/2017 00:38 KRL TREATM ENT 2016 22:55 Staff/ Patient Interaction - Calllight placed within reach. 07/09/2017 22:57 KRL1 22:55 Staff/ Patient Interaction -Introduced self and assessed patients needs. 07/09/201722:57 KRL1 22:55 Staff/ Patient Interaction - Siderails up X2 and call light placed within reach. 07/09/201722:57 KRL *[facility] PATIENT NAME: NICOLE SILVA [address] [facility] [address] [facility] MEDICAL REC #: [id number], [place] [address] DEPARTMENT CHART EMERGENCY DEPARTMENT NZQTYNPMC41/07/2017 22:55 Patient Interaction - Name Band on Pt07/09/2017 22:57 KRL1 22:56 Patient Interaction - Fall Risk [place] Pt. 07/09/2017 22:57 KRL1 22:56 Primary DOC Guide - A. 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 Fall RiskAssessment (Age andlt;65) 07/09/2017 22:57 KRLHistory of Falling in last 3 months? No (0)Confusion or Disorientation? Yes (5)Intoxicated or Sedated? Yes (3)Fall Risk Score 1-2 Points = Low Risk. 3-4 Points =Moderate Risk. 5 or more points = High Risk. 8Fall Score Greater andgt;= 3? YesNote: FALL BAND ON07/09/2017 22:57 Primary DOC Guide - D. PsychosocialAssessment 07/09/2017 22:57 KRLOver the Last 2 weeks, how often have you had littleinterest or pleasure in doing things (0) Not at AllIs Psychosocial Assessment Score 3 or more? If score is3 or more please consult ED Navigator! NoTotal Psychosocial Assessment Score 0Over the last 2 weeks, how often have you been feelingdown, depressed or hopeless (0) Not at All07/09/2017 22:57 Primary DOC Guide - E. Family ViolenceAssessment 07/09/2017 22:57 KRLWithin the past year, has anyone ever pushed, shoved,slapped, choked, hit, punched or kicked you: No [facility] PATIENT NAME: NICOLE SILVA [address] [facility] [address] MEDICAL REC #: [id number], [place] [address] DEPARTMENT CHART EMERGENCY DEPARTMENT PHYSICIANDo you feel safe and well cared for: Yes07/09/2017 22:57 Hourly Rounding - Rounding 07/09/201722:57 KRLAssessment Note PULSE OX ON, FATHER AT [id number]/10/2017 01:30 Hourly Rounding - Rounding 07/10/201701:31 SNCElimination/Toileting NPain 0Position Comfortable YSafe Environment YAssessment Note Pt discharged in no acute distress.Fall Risk Change N1 01:30 Admit/Discharge - Discharge infomationreviewed with pt 07/10/2017 01:31 SNC07/10/2017 01:30 Admit/Discharge - Dischargeinformation reviewed with parents 07/10/2017 01:31 SNC07/10/2017 01:31 Discharge - Instructions reviewed withpt and verbalizes understanding 07/10/2017 01:31 SNC07/10/2017 01:31 Discharge - Discharge via wheelchairhome with family 07/10/2017 01:31 SNC MEDICA TIONS IV =========IV Fluid: B 07/09/2017 23:01 07/09/2017 23:02KRLLine #: 1 Rate: ml/hr Location: antecubitalfossa leftNdl Gauge: 16 # Attempts: 1Notes: squad siteIV Fluid: S 07/09/2017 23:02 07/10/2017 01:32KRLLine #: 1 Fluid: Normal SalineRate: ml/hr 999 Location: antecubital fossa leftNdl Gauge: 16 # Attempts: 1 [facility] PATIENT NAME: NICOLE SILVA N[address] MEDICAL REC #: [id number], [place] [address] DEPARTMENT CHART EMERGENCY DEPARTMENT PHYSICIANAmt: 999Notes: squad startIV Fluid: D 07/10/2017 01:32 07/10/2017 01:32SNCLine #: 1 Fluid: Normal SalineRate: ml/hr 999 Location: antecubital fossa leftNdl Gauge: 16 # Attempts: 1IV Fluid: E 07/10/2017 01:32 07/10/2017 01:32SNCLine #: 1 Rate: ml/hr Location: antecubitalfossa leftNdl Gauge: 16 # Attempts: 1Notes: IV removed. Angiocath intact. Minimal bleedingcontrolled. Dressing applied. I AND O VITALS =========VS-ROUTINE Time: 07/10/2017 01:06B/P: 103/58 - Right Upper Arm - Lying - Machine Pulse:88 - Monitor Resp: 14Sa02: 97 Room Air 07/10/2017 01:07 DWRVS-Pain Time: 07/10/2017 01:06 Pain Level: 01:07 DWRVS-GCS Time: 07/10/2017 01:06 07/10/2017 01:07 DWRVS-HT/WT Time: 07/10/2017 01:06 07/10/2017 01:07 DWRVS-Visual Time: 07/10/2017 01:06 07/10/2017 01:07 DWRVS-FHT Time: 07/10/2017 01:06 07/10/2017 01:07DWRVS-Notes Time: 07/10/2017 01:06 07/10/2017 01:07 DWRVS-ROUTINE Time: 07/10/2017 01:19 07/10/2017 01:19KRLVS-Pain Time: 07/10/2017 01:19 07/10/2017 01:19KRLVS-GCS Time: 07/10/2017 01:19 07/10/2017 01:19 KRLVS-HT/WT Time: 07/10/2017 01:19 Ht: 162.5 cmEstimated Weight: 61.2 kg Estimated 07/10/2017 01:19KRLVS-Visual Time: 07/10/2017 01:19 07/10/2017 01:19 KRLVS-FHT Time: 07/10/2017 01:19 07/10/2017 01:19 [facility] PATIENT NAME: NICOLE SILVA [address] [facility] [address] MEDICAL REC #: [id number], [place] [address] DEPARTMENT CHART EMERGENCY DEPARTMENT PHYSICIANKRLVS-Notes Time: 07/10/2017 01:19 07/10/2017 01:19 KRLVS-ROUTINE Time: 07/10/2017 01:29B/P: 107/73 - Left Upper Arm - Lying - Machine Pulse:68 - Monitor Resp: 20Sa02: 98 Room Air 07/10/2017 01:30 SNCVS-Pain Time: 07/10/2017 01:29 Pain Level: 01:30 SNCVS-GCS Time: 07/10/2017 01:29 07/10/2017 01:30 SNCVS-HT/WT Time: 07/10/2017 01:29 07/10/2017 01:30 SNCVS-Visual Time: 07/10/2017 01:29 07/10/2017 01:30 SNCVS-FHT Time: 07/10/2017 01:29 07/10/2017 01:30SNCVS-Notes Time: 07/10/2017 01:29 MAP 85 07/10/201701:30 SNCVS-ROUTINE Time: 07/10/2017 12:00B/P: 105/56 - Left Upper Arm - Lying - Machine Pulse:83 - Monitor Resp: 17Sa02: 98 Room Air 07/10/2017 01:07 DWRVS-Pain Time: 07/10/2017 12:00 Pain Level: 01:07 DWRVS-GCS Time: 07/10/2017 12:00 07/10/2017 01:07 DWRVS-HT/WT Time: 07/10/2017 12:00 07/10/2017 01:07 DWRVS-Visual Time: 07/10/2017 12:00 07/10/2017 01:07 DWRVS-FHT Time: 07/10/2017 12:00 07/10/2017 01:07DWRVS-Notes Time: 07/10/2017 12:00 07/10/2017 01:07 DWRVS-ROUTINE Time: 07/10/2017 12:07 Temp: 97.50 F - Oral07/10/2017 01:08 DWRVS-Pain Time: 07/10/2017 12:07 07/10/2017 01:08DWRVS-GCS Time: 07/10/2017 12:07 07/10/2017 01:08 DWRVS-HT/WT Time: 07/10/2017 12:07 07/10/2017 01:08 DWRVS-Visual Time: 07/10/2017 12:07 07/10/2017 01:08 DWRVS-FHT Time: 07/10/2017 12:07 07/10/2017 01:08DWRVS-Notes Time: 07/10/2017 12:07 07/10/2017 01:08 DWR ORDERS Discharge patient 07/10/2017 01:15N/A [facility] PATIENT NAME: NICOLE SILVA [address] [facility] [address] [facility] MEDICAL REC #: [id number], [place] [address] DEPARTMENT CHART EMERGENCY DEPARTMENT PHYSICIANOrdered: 07/10/2017 01:03 By . OtherReviewed: 07/10/2017 01:15 By . Other*Other Nurse: please document vital signs07/10/2017 01:12N/AOrdered: 07/10/2017 00:57 By Boogie Herman Time: 07/10/2017 01:12 By Boogie Jessica ORDER: GFRP 07/10/2017 00:10NoneOrdered: 07/10/2017 00:10 Completed Time:07/10/2017 00:10 Results Time: 07/10/2017 00:10IV NS bolus 1000cc over 60 min 07/10/2017 01:12N/AOrdered: 07/09/2017 23:15 By Boogie Herman Time: 07/10/2017 01:12 By Boogie Villasenor Time: 07/09/2017 23:42 KRLZofran (IV)*(2mg/ml) DOSE: 4 mgIV 07/09/2017 23:57N/AOrdered: 07/09/2017 23:15 By Boogie Herman Time: 07/09/2017 23:57 By Boogie Villasenor Time: 07/09/2017 23:42 KRLETOH 07/10/2017 00:10N/AOrdered: 07/09/2017 23:15 By Boogie Herman Time: 07/10/2017 00:10 By Boogie Villasenor Time: 07/09/2017 23:57 KRLResults Time: 07/10/2017 00:10BMP 07/10/2017 00:10N/AOrdered: 07/09/2017 23:15 By Boogie Herman Time: 07/10/2017 00:10 By Boogie Villasenor Time: 07/09/2017 23:57 KRLResults Time: 07/10/2017 00:10Drug screen basic panel (cath if unable to void in 30mins) 07/10/2017 00:57N/AOrdered: 07/09/2017 23:15 By Boogie Herman Time: 07/10/2017 00:57 By Boogie Garcia [facility] PATIENT NAME: NICOLE SILVA [id number] [facility] [address] MEDICAL REC #: [id number], [place] [address] DEPARTMENT CHART EMERGENCY DEPARTMENT PHYSICIANNoted Time: 07/10/2017 00:29 DWRResults Time: 07/10/2017 00:57 DISC HARGE Diag nosis: acute alcohol intoxication 07/10/201701:03Disposition: Time: 07/10/2017 01:03Discharge Time: 07/10/2017 01:32Type: DischargeCondition: Stable for admission/discharge/transfera fter emergency evaluation/treatment Category: *NOTAPPLICABLEReferral: 07/10/2017 01:03Admit Physician: . Other PRES CRIPTIONS CHARGES== =========SIGNATURE =========Boogie DOUGLAS DWCleopatra *[facility] PATIENT NAME: NICOLE SILVA [id number] [facility] [address] [place] MEDICAL REC #: [id number], [place] [address] DEPARTMENT CHART EMERGENCY DEPARTMENT PHYSICIAN Normal [facility] ED Documentation This is a preliminar y report only, as the practitioner review and authentication has not occurred. [facility]2017 IF AMER Greater than 60 Normal [facility] Comment on above: Order Comment: Campu s: M Performed By: #### L 500.23661, L500.63009, L530.60566 ####[facility] [id number] [place], [place] [address]Wa# [phone] IF non-AFR AMER Greater than 60 [facility] Comment on above: Order Comment: Campu s: M Performed By: #### L 500.33040, L500.17731, L530.03765 ####[facility] [id number] [place], [place] [address]Td# [phone] UR DRUG ABUSEon 07-10-2017 UR AMPH Negative Normal Ktxrpn=[address] [facility] Comment on above: Order Comment: Campu s: M Performed By: #### L 600.17763 ####[facility] [id number] [place], [place] [address]Zu# [phone] UR GABI Negative Normal Kmeynx=[address] [facility] Comment on above: Order Comment: Campu s: M Performed By: #### L 600.16171 ####[facility] [id number] [place], [place] [address]Ii# [phone] UR ELAYNE Negative Normal Kddyvw=[address] [facility] Comment on above: Order Comment: Campu s: M Performed By: #### L 600.13012 ####[facility] [id number] [place], [place] [address]Nh# [phone] UR JULIETH/THC Negative Normal Cutoff=[address] [facility] Comment on above: Order Comment: Hieuu s: M Performed By: #### L 600.22717 ####[facility] [id number] [place], [place] [address]Zb# [phone] UR MISTY Negative Normal Hyedvf=[address] [facility] Comment on above: Order Comment: Hieuu s: M Performed By: #### L 600.81280 ####[facility] [id number] [place] [address]Zg# [phone] UR OPIAT Negative Normal Siwmqz=[address] [facility] Comment on above: Order Comment: Hieuu s: M Performed By: #### L 600.07581 ####[address] [address]Pn# [phone] UR PCP Negative Normal Cutoff=[address] [facility] Comment on above: Order Comment: Hieuu s: M Performed By: #### L 600.44803 ####[address] [address]Cs# [phone] DRAB COMMENT Normal [facility] Comment on above: Order Comment: Joss s: M Result Comment: Urin e Drugs of Abuse results are qualitative, providing apreliminary analytical result. A positive result for anassay should be confirmed by another nonimmunological,reference method. A negative result indicates that theassay material is either not present, or present at levelsbelow the cutoff threshold for the analytical method range(AMR) validation. Performed By: #### L 600.45353 ####[address] [address]Ht# [phone] Vital Signs Date Time Vital Sign Value Performing Clinician Genny newell 06-06-2025 09:27-0400 Body mass index (BMI) [Ratio] 29.18 kg/m2 Christine Vanegas APRN.CNM Work Phone: [facility] 06-06-2025 09:27-0400 Body weight 77.11 kg Christine Vanegas APRN.CNM Work Phone: [facility] 06-06-2025 09:27-0400 Diastolic blood pressure 62 mm[Hg] Christine Plotts [employer] MAINFRAME DEVELOPER.CNM Work Phone: [facility] 06-06-2025 09:27-0400 Systolic blood pressure 88 mm[Hg] Christine Plotts [employer] MAINFRAME DEVELOPER.CNM Work Phone: [facility] 04-11-2025 09:55-0400 Body mass index (BMI) [Ratio] 25.58 kg/m2 Christine Plotts [employer] MAINFRAME DEVELOPER.CNM Work Phone: [facility] 04-11-2025 09:55-0400 Body weight 67.59 kg Christine Plotts [employer] MAINFRAME DEVELOPER.CNM Work Phone: [facility] 04-11-2025 09:55-0400 Diastolic blood pressure 66 mm[Hg] Christine Plotts [employer] MAINFRAME DEVELOPER.CNM Work Phone: [facility] 04-11-2025 09:55-0400 Systolic blood pressure 108 mm[Hg] Christine Plotts [employer] MAINFRAME DEVELOPER.CNM Work Phone: [facility] 03-13-2025 08:06-0400 Body mass index (BMI) [Ratio] 24.03 kg/m2 Christine Plotts [employer] MAINFRAME DEVELOPER.CNM Work Phone: [facility] 03-13-2025 08:06-0400 Body weight 63.5 kg Christine Plotts [employer] MAINFRAME DEVELOPER.CNM Work Phone: [facility] 03-13-2025 08:06-0400 Diastolic blood pressure 64 mm[Hg] Christine Plotts [employer] MAINFRAME DEVELOPER.CNM Work Phone: [facility] 03-13-2025 08:06-0400 Systolic blood pressure 108 mm[Hg] Christine Plotts [employer] MAINFRAME DEVELOPER.CNM Work Phone: [facility] 02-14-2025 14:41-0400 Body mass index (BMI) [Ratio] 23.69 kg/m2 Alec Oscar [employer] MAINFRAME DEVELOPER.BLADDER TIER Work Phone: [facility] 02-14-2025 14:41-0400 Body weight 62.6 kg Alec Oscar [employer] MAINFRAME DEVELOPER.BLADDER TIER Work Phone: [facility] 02-14-2025 14:41-0400 Diastolic blood pressure 62 mm[Hg] Alec Hewittury [employer] MAINFRAME DEVELOPER.BLADDER TIER Work Phone: [facility] 02-14-2025 14:41-0400 Systolic blood pressure 100 mm[Hg] Alec Haury [employer] MAINFRAME DEVELOPER.BLADDER TIER Work Phone: [facility] 01-31-2025 08:52-0400 Body height 162.6 cm Christine Plotts [employer] MAINFRAME DEVELOPER.CNM Work Phone: [facility] 01-31-2025 08:52-0400 Body mass index (BMI) [Ratio] 23.86 kg/m2 Christine Plotts [employer] MAINFRAME DEVELOPER.CNM Work Phone: [facility] 01-31-2025 08:52-0400 Body weight 63.05 kg Christine Plotts [employer] MAINFRAME DEVELOPER.CNM Work Phone: [facility] 01-31-2025 08:52-0400 Diastolic blood pressure 64 mm[Hg] Christine Plotts [employer] MAINFRAME DEVELOPER.CNM Work Phone: [facility] 01-31-2025 08:52-0400 Systolic blood pressure 102 mm[Hg] Christine Plotts [employer] MAINFRAME DEVELOPER.CNM Work Phone: [facility] Encounters Encounter Date Encounter Type Care Provider Facility Start: 08-09-2025 End: 08-09-2025 ambulatory TAL GALLOWAY Facility:[facility] Start: 08-02-2025 End: 08-02-2025 [facility] Start: 07-19-2025 End: 07-19-2025 ambulatory SIMONA GONZALES Facility:[facility] Start: 07-05-2025 End: 07-05-2025 ambulatory CHRISTINE VANEGAS Facility:[facility] Start: 06-20-2025 End: 06-20-2025 ambulatory CHRISTINE VANEGAS Facility:[facility] Start: 06-06-2025 End: 06-06-2025 Patient encounter procedure Christine Plotts [employer] MAINFRAME DEVELOPER.CNM Work Phone: OB/Gynecology Comment on above: Encounter for superv ision of low-risk in second trimester ([facility]) (Primary Dx); 28 weeks gestation of ([facility]); Rubella non-immune status, antepartum ([facility]); Need for vaccination Start: 06-06-2025 End: 06-06-2025 [facility] Start: 05-08-2025 End: 05-08-2025 [facility] Facility:[facility] Start: 04-11-2025 End: 04-11-2025 Patient encounter procedure Christine Vanegas APRN.RENA Work Phone: OB/Gynecology Comment on above: Encounter for superv ision of low-risk in second trimester ([facility]) (Primary Dx); 20 weeks gestation of ([facility]); Rubella non-immune status, antepartum ([facility]); Subchorionic hematoma in first trimester, single or unspecified fetus ([facility]); Supervision of high risk in second trimester ([facility]) Encounter for anatomic survey ([facility]) (Primary Dx); 20 weeks gestation of ([facility]); Encounter for screening for malformation using ultrasound ([facility]) Start: 04-11-2025 End: 04-11-2025 [facility] Facility:[facility] Start: 04-04-2025 ambulatory JUDY richey:Jeri Start: 03-13-2025 End: 03-13-2025 [facility] Facility:[facility] Start: 03-13-2025 End: 03-13-2025 Patient encounter procedure Christine Vanegas APRN.CNM Work Phone: OB/Gynecology Comment on above: 15 weeks gestation o f ([facility]) (Primary Dx); Encounter for supervision of high risk in second trimester, antepartum (HCC); Rubella non-immune status, antepartum ([facility]); Heartburn during in second trimester ([facility]) Start: 02-14-2025 End: 02-14-2025 Patient encounter procedure Alec Oscar APRN.CNP Work Phone: OB/Gynecology Comment on above: Encounter for superv ision of high risk in second trimester, antepartum (HCC) (Primary Dx); 12 weeks gestation of (HCC); Subchorionic hematoma in first trimester, single or unspecified fetus (HCC); Rubella non-immune status, antepartum (HCC); Bicornate uterus; Nausea and vomiting during (HCC) Encounter for emilee cash screening for malformation using ultrasound ([facility]) (Primary Dx); Bicornate uterus; 12 weeks gestation of (HCC) Start: 02-14-2025 End: 02-14-2025 ambulatory CHRISTINE VANEGAS Facility:[facility] Start: 01-31-2025 End: 04-02-2025 Follow-up encounter Christine Vanegas [employer] MAINFRAME DEVELOPER.RENA Work Phone: OB/Gynecology Start: 01-31-2025 End: 01-31-2025 ambulatory CHRISTINE VANEGAS Facility:[facility] Start: 01-31-2025 ambulatory CHRISTINE VANEGAS Facilit y:[facility] Start: 01-31-2025 End: 01-31-2025 Patient encounter procedure Christine Vanegas [employer] MAINFRAME DEVELOPER.RENA Work Phone: OB/Gynecology Comment on above: with uncer tain dates, antepartum (HCC) (Primary Dx); Bicornate uterus; Subchorionic hematoma in first trimester, single or unspecified fetus (HCC); 10 weeks gestation of (HCC); Encounter for supervision of normal first in first trimester ([facility]); Screening for cervical cancer; Screening for human papillomavirus (HPV); Constipation, unspecified constipation type Start: 01-10-2025 End: 01-10-2025 Emergency department patient visit Facility:[id number] Start: 05-17-2018 End: 05-22-2018 Patient encounter SONAL RHODES Facility:[facility] Start: 04-19-2018 Patient encounter Jaquelin Castillo Facility:[facility] Start: 07-10-2017 Emergency department patient visit Jaquelin Castillo Facility:[facility] Procedures Date Procedure Procedure Detail Performing Clinician Start: 04-11-2025 Us preg uterus after 1st trimest 10/03 gestation Christine Vanegas [employer] MAINFRAME DEVELOPER.CNM Work Phone: Start: 02-14-2025 Us preg uterus after 1st trimest 10/03 gestation Christine Vanegas APRN.CNM Work Phone: Start: 01-31-2025 Antibody screen AYLABLAYNE Lyons GUILHERME Comment on above: Order Comment: Speci men Type: BLOOD SPECIMEN Ordering Facility: [facility] Address: [address] [place] [address] Performed By: #### T SPN #### [facility] CLIA [id number] [address] [place] [address] [place] [address] [place] Start: 01-31-2025 Us uterus limited 1/> fetuses Christine Vanegas APRN.RENA Work Phone: Plan of Treatment Date Care Activity Detail Author Start: 06-06-2035 Urine microalbumin profile DTaP,Tdap,Td Vaccine (3 - Td or Tdap) [facility] Start: 05-28-2032 Urine microalbumin profile DTaP,Tdap,Td Vaccine (2 - Td or Tdap) [facility] Start: 01-31-2030 Screening for malign ant neoplasm of cervix Cervical Cancer Screening [facility] Start: 07-04-2025 RSV Vaccine (1 - Ris k 1-dose series) RSV Vaccine (1 - Risk 1-dose series) [facility] Start: 06-20-2025 End: 06-20-2025 Patient encounter procedure 06/20/2025 3:15 PM EDT Routine Office Visit OB/Gynecology [address] [place] [address] Christine Vanegas APRN.CNM [address] [place] [address] OB OB/Gynecology Comment on above: OB Start: 06-06-2025 End: 06-06-2025 Patient encounter procedure 06/06/2025 9:15 AM EDT Routine Office Visit OB/Gynecology [address] [place] [address] Christine Vanegas APRN.CNLesly [address] [place] [address] Glucose Test OB/Gynecology Comment on above: Glucose Test Start: 06-06-2025 End: 06-06-2025 ambulatory 06/06/2025 9:00 AM EDT Results Only David Danielle [facility] [address] [place] [address] GLucose Test David Danielle [facility] Comment on above: GLucose Test Start: 06-03-2025 Influenza vaccination [facility] Start: 05-08-2025 End: 05-08-2025 Patient encounter procedure 05/08/2025 9:15 AM EDT Routine Office Visit OB/Gynecology [address] [place] [address] Christine Vanegas APRN.CNM [address] [place] [address] (Fax) OB OB/Gynecology Comment on above: OB Start: 04-11-2025 End: 04-11-2025 Patient encounter procedure [facility] Comment on above: Anatomy Scan OB Routine Start: 03-13-2025 End: 03-13-2025 Patient encounter procedure 03/13/2025 8:00 AM EDT Routine Office Visit OB/Gynecology [address] [place] [address] Christine Vanegas APRN.CNM [address] [place] [address] (Fax) OB Routine OB/Gynecology Comment on above: OB Routine Start: 02-28-2025 End: 02-28-2025 Patient encounter procedure 02/28/2025 9:45 AM EDT Routine Office Visit OB/Gynecology [address] [place] [address] Christine Vanegas APRN.CNM [address] [place] [address] LMP 11/22/24 OB/Gynecology Comment on above: LMP 11/22/24 Start: 02-14-2025 End: 02-14-2025 Patient encounter procedure [facility] Comment on above: Nuchal OB Routine Start: 01-31-2025 End: 05-02-2025 ANEMIA REFLEX PANEL [facility] Work Phone: Comment on above: Expected: 01/31/2025 , Expires: 05/02/2025 Start: 01-31-2025 End: 05-02-2025 Chromosome 21 trisomy [Presence] in Blood or Tissue by Cytogenetics [facility] Comment on above: Expected: 01/31/2025 , Expires: 05/02/2025 Start: 01-31-2025 End: 05-02-2025 Hemoglobin A1c in Blood [facility] Comment on above: Expected: 01/31/2025 , Expires: 05/02/2025 Start: 01-31-2025 End: 05-02-2025 Hepatitis B virus surface Ag [Presence] in Serum [facility] Comment on above: Expected: 01/31/2025 , Expires: 05/02/2025 Start: 01-31-2025 End: 05-02-2025 Hepatitis C virus Ab [Presence] in Serum [facility] Comment on above: Expected: 01/31/2025 , Expires: 05/02/2025 Start: 01-31-2025 End: 05-02-2025 HIV 1+2 Ab [Presence] in Serum or Plasma by Immunoassay [facility] Comment on above: Expected: 01/31/2025 , Expires: 05/02/2025 Start: 01-31-2025 End: 01-31-2026 OBSTETRIC ULTRASOUND WHI OBSTETRIC ULTRASOUND WHI Anc Imaging Routine with uncertain dates, antepartum (HCC) Bicornate uterus Subchorionic hematoma in first trimester, single or unspecified fetus (HCC) 10 weeks gestation of (HCC) Encounter for supervision of normal first in first trimester (HCC) Expected: 01/31/2025, Expires: 01/31/2026 [facility] Comment on above: Expected: 01/31/2025 , Expires: 01/31/2026 Start: 01-31-2025 End: 05-02-2025 RUBELLA IGG ANTIBODY [facility] Comment on above: Expected: 01/31/2025 , Expires: 05/02/2025 Start: 01-31-2025 End: 05-02-2025 SYPHILIS TREPONEMAL W/REFLEX [facility] Comment on above: Expected: 01/31/2025 , Expires: 05/02/2025 Start: 01-31-2025 End: 05-02-2025 TYPE + SCREEN [facility] Comment on above: Expected: 01/31/2025 , Expires: 05/02/2025 Start: 06-03-2024 Covid-19 Vaccine () Covid-19 Vaccine () [facility] Start: 2021 HPV Vaccine (1 - 3-d ose SCDM series) HPV Vaccine (1 - 3-dose SCDM series) [facility] Start: 2015 Screening for malign ant neoplasm of cervix Cervical Cancer Screening [facility] Start: 2013 Hepatitis B Vaccine (1 of 3 - 19+ 3-dose series) Hepatitis B Vaccine (1 of 3 - 19+ 3-dose series) [facility] Start: 2012 Anxiety Screening Anxiety Screening [facility] Start: 2012 Depression Screening Depression Scre ening [facility] Start: 2012 Hepatitis C screening Hepatitis C Sc reening [facility] Start: 2012 HIV screening HIV Screening [facility] Bacteria identified in Urine by Culture BACTERIAL CULTURE, URINE Microbiology Routine with uncertain dates, antepartum (HCC) Bicornate uterus Subchorionic hematoma in first trimester, single or unspecified fetus (HCC) 10 weeks gestation of (HCC) Encounter for supervision of normal first in first trimester ([facility]) 01/31/2025 9:48 AM EDT [facility] Chlamydia trachomatis+Neisseria gonorrhoeae DNA [Presence] in Unspecified specimen by CESAR with probe detection GONORRHEA/CHLAMYDIA NAAT Lab Routine with uncertain dates, antepartum (HCC) Bicornate uterus Subchorionic hematoma in first trimester, single or unspecified fetus (HCC) 10 weeks gestation of (HCC) Encounter for supervision of normal first in first trimester ([facility]) 01/31/2025 9:48 AM EDT [facility] PAP TEST PAP TEST Lab Rou dora with uncertain dates, antepartum (HCC) Bicornate uterus Subchorionic hematoma in first trimester, single or unspecified fetus (HCC) 10 weeks gestation of (HCC) Encounter for supervision of normal first in first trimester ([facility]) Screening for cervical cancer Screening for human papillomavirus (HPV) 01/31/2025 9:48 AM EDT [facility] TRICHOMONAS VAGINALI S NAAT TRICHOMONAS VAGINALIS NAAT Lab Routine with uncertain dates, antepartum (HCC) Bicornate uterus Subchorionic hematoma in first trimester, single or unspecified fetus (HCC) 10 weeks gestation of (HCC) Encounter for supervision of normal first in first trimester (HCC) 01/31/2025 9:48 AM EDT [facility] Immunizations Immunization Date Immunization Notes Care Provider Jorden goss 06-06-2025 tetanus toxoid, redu sincere diphtheria toxoid, and acellular pertussis vaccine, adsorbed Christine Vanegas APRN.CNM Work Phone: [facility] 09-11-2012 influenza virus vacc ine, unspecified formulation Christine Vanegas APRN.CNLesly Work Phone: [facility] Payers Date Payer Category Payer [facility] Member Subscriber Plan / Payer (Effective 2024-Present) Name: Nicole Pugh Relation to Subscriber: Self Name: Nicole Pugh Payer ID: [id number] (NAIC) Type: PPO Address: [facility] [address] [place] [id number] 2023 Unknown [id number] 1995 Private Health Insurance [id number] 1994 Unknown [id number] Private Health Insurance [id number] Social History Date Type Detail Facility Start: 01-30-2025 [facility] History of tobacco use Current smoker [facility] History of tobacco use Cigarette Smoker [facility] Start: 01-30-2025 Tobacco use and exposure Smoke less tobacco non-user [facility] Start: 01-31-2025 End: 05-08-2025 Alcoholic beverage intake Ex-dr[facility] (finding) [facility] Start: 01-11-2025 End: 01-31-2025 History of Social function [facility] Start: 01-11-2025 End: 01-31-2025 Tobacco use panel [facility] Start: 08-14-2021 National Score (1-10 0), lower number is lower risk 74 [facility] Start: 01-30-2025 Education 17 [facility] Start: 12-06-2024 [facility] Start: 1995 Sex assigned at Female [facility] Start: 01-30-2025 Gender identity Identifies as female gender (finding) [facility] Start: 01-30-2025 Sexual orientation Heterosexual (elvin oakley) [facility] Goals Date Patient Goal Desired Activity /State Personal health goal Clinical Notes 01-10-2025 to 06-06-2025 Quick Notes - Christine Vanegas APRN.[facility] - 06/06/2025 9:51 AM EDTPrenatal Quick Notes - Christine Vanegas APRN.[facility] - 06/06/2025 9:51 AM EDTJo Kelley LPN - 06/06/2025 9:28 AM EDT Note Date & Type Note Facility 06-06-2025 Progress note Formatting of t his note might be different from the original. S: Nicole Pugh is a 29 year old female who presents at 28 weeks gestation for a routine visit. Positive movements. Denies headache, visual changes, chest pain, shortness of breath, vaginal bleeding, leakage of fluid, or dysuria. Feeling well, no complaints. O: See flow sheet Gen: No apparent distress Abd: Gravid, nontender ASSESSMENT/PLAN: 1. Encounter for supervision of low-risk in second trimester 2. 28 weeks gestation of 3. Rubella non-immune status, antepartum 4. Need for vaccination - 1 hour GCT, CBC, and RPR today - Rh positive - TDAP today - MMR after delivery - to get TDAP - LARC form reviewed and signed. Patient declines contraception - Depression screen negative - Opioid screen negative - plan form discussed and given to patient. Patient desires unmedicated - possible water , FORMULA FEEDING - PTL precautions and kick counts reviewed - RTO- 2 weeks or sooner if needed Christine Vanegas APRN.CNM [facility] 06-06-2025 Miscellaneous Notes S: Nicole Pugh is a 29 year old female who presents at 28 weeks gestation for a routine visit. Positive movements. Denies headache, visual changes, chest pain, shortness of breath, vaginal bleeding, leakage of fluid, or dysuria. Feeling well, no complaints. O: See flow sheet Gen: No apparent distress Abd: Gravid, nontender ASSESSMENT/PLAN: 1. Encounter for supervision of low-risk in second trimester 2. 28 weeks gestation of 3. Rubella non-immune status, antepartum 4. Need for vaccination - 1 hour GCT, CBC, and RPR today - Rh positive - TDAP today - MMR after delivery - to get TDAP - LARC form reviewed and signed. Patient declines contraception - Depression screen negative - Opioid screen negative - plan form discussed and given to patient. Patient desires unmedicated - possible water , FORMULA FEEDING - PTL precautions and kick counts reviewed - RTO- 2 weeks or sooner if needed Christine Vanegas APRN.CNM documented in this encounter [facility] 06-06-2025 Note HNO ID: [id number] Author: JO KELLEY LPN Service: ? Author Type: Licensed Nurse Type: Progress Notes Filed: 06/06/2025 10:22 Note Text: Patient Entered Questionnaires PHQ-2 Little interest or pleasure Not at all Down, depressed, hopeless Not at all Patient identified by name and date of . Nicole Pugh presents today for a vaccination of Tdap. Patient denies an allergy to latex: yes Patient denies a severe (life-threatening) allergy to a previous dose of Tdap, DTP, DTaP, DT or Td vaccine. Yes Patient denies history of epilepsy or neurological problems: Yes Patient is afebrile and denies being moderately or severely ill: Yes Patient denies history of Guillain-Charlotte Syndrome (a severe paralytic illness): Yes Tdap Adacel injection was given without incident. See immunizations for details of immunizations administered today. VIS sheet provided: Yes Provider Piedad Vanegas was present in office at time of injection. Jo Kelley LPN [facility] 06-06-2025 History of Presen t illness Narrative Patient Entered Questionnaires PHQ-2 Little interest or pleasure Not at all Down, depressed, hopeless Not at all Patient identified by name and date of . Nicole Pugh presents today for a vaccination of Tdap. Patient denies an allergy to latex: yes Patient denies a severe (life-threatening) allergy to a previous dose of Tdap, DTP, DTaP, DT or Td vaccine. Yes Patient denies history of epilepsy or neurological problems: Yes Patient is afebrile and denies being moderately or severely ill: Yes Patient denies history of Guillain-Charlotte Syndrome (a severe paralytic illness): Yes Tdap Adacel injection was given without incident. See immunizations for details of immunizations administered today. VIS sheet provided: Yes Provider Piedad Vanegas was present in office at time of injection. Jo Kelley LPN documented in this encounter [facility] 06-06-2025 Instructions Jo Kelley LPN - 06/06/2025 9:19 AM EDT SEQUENTIAL SCREENINGS The [facility] offers sequential screenings for women who are interested in screenings for chromosomal abnormalities and certain defects during a . The sequential screen combines ultrasound and blood tests to determine the risk of chromosomal abnormalities, including Down's Syndrome (Trisomy 21) and Trisomy 18, as well as open neural tube defects including spina bifida. Ultrasound examination is performed between 11 weeks and 13 weeks gestational age. Blood tests are drawn after the ultrasound and again later in the between 15 and 21 weeks gestational age. Please let your physician know if you are interested in this testing. It will require an appointment with our health care sanitary technician. This is not an ultrasound performed by a physician in our office during a routine visit. SIGNS AND SYMPTOMS OF LABOR 1. Contractions every 10 minutes or more often 2. Clear, pink, or brownish fluid (water) leaking from vagina 3. Feeling that baby is pushing down, pressure 4. Low, dull backache 5. Cramps that feel like a period 6. Cramps with or without diarrhea If you notice any of the above symptoms, contact our office at [phone] and ask to speak with a nurse. After hours, you can call doctors registry at [phone] OR call [facility] at [phone] and ask to have the doctor director transition paged. If you consider this an emergency, dial 5-0-7 or go to your nearest emergency department. NEED HELP? Are you dealing with a violent or abusive relationship? Are you a victim of rape or sexual assult? Call [facility] ([place]) 24 hour Crisis Hotline: 620.337.3801 or 514-495-2282. MANUAL Your Guide to a Healthy manual is now on-line. Visit [email or web address] to download your free copy documented in this encounter [facility] 04-11-2025 Progress note Formatting of t his note might be different from the original. S: Nicole Pugh is a 29 year old female who presents at 20 weeks gestation for a routine visit. Just completed anatomy US. Started feeling flutters. Heartburn and nausea resolved. Not taking any medications. Energy increased. Continues to work out. Seeing chiropractor and will have massage therapy. Denies headache, visual changes, chest pain, shortness of breath, vaginal bleeding, leakage of fluid, or dysuria. Feeling well, no complaints. O: See flow sheet Gen: No apparent distress Abd: Gravid, non tender ASSESSMENT/PLAN: 1. Encounter for supervision of low-risk in second trimester 2. 20 weeks gestation of 3. Rubella non-immune status, antepartum 4. Subchorionic hematoma in first trimester, single or unspecified fetus - No further vaginal spotting / bleeding - Continue vitamin daily - Encouraged taking ASA at bedtime - RTO 4 weeks or sooner if needed Christine Vanegas APRN.CNM [facility] 04-11-2025 Miscellaneous Notes S: Nicole Pugh is a 29 year old female who presents at 20 weeks gestation for a routine visit. Just completed anatomy US. Started feeling flutters. Heartburn and nausea resolved. Not taking any medications. Energy increased. Continues to work out. Seeing chiropractor and will have massage therapy. Denies headache, visual changes, chest pain, shortness of breath, vaginal bleeding, leakage of fluid, or dysuria. Feeling well, no complaints. O: See flow sheet Gen: No apparent distress Abd: Gravid, non tender ASSESSMENT/PLAN: 1. Encounter for supervision of low-risk in second trimester 2. 20 weeks gestation of 3. Rubella non-immune status, antepartum 4. Subchorionic hematoma in first trimester, single or unspecified fetus - No further vaginal spotting / bleeding - Continue vitamin daily - Encouraged taking ASA at bedtime - RTO 4 weeks or sooner if needed Christine Vanegas APRN.CNM documented in this encounter [facility] 04-11-2025 Instructions Cachorro Gonzalez MA - 04/11/2025 9:53 AM EDT SEQUENTIAL SCREENINGS [facility] offers sequential screenings for women who are interested in screenings for chromosomal abnormalities and certain defects during a . The sequential screen combines ultrasound and blood tests to determine the risk of chromosomal abnormalities, including Down's Syndrome (Trisomy 21) and Trisomy 18, as well as open neural tube defects including spina bifida. Ultrasound examination is performed between 11 weeks and 13 weeks gestational age. Blood tests are drawn after the ultrasound and again later in the between 15 and 21 weeks gestational age. Please let your physician know if you are interested in this testing. It will require an appointment with our health care sanitary technician. This is not an ultrasound performed by a physician in our office during a routine visit. SIGNS AND SYMPTOMS OF LABOR 1. Contractions every 10 minutes or more often 2. Clear, pink, or brownish fluid (water) leaking from vagina 3. Feeling that baby is pushing down, pressure 4. Low, dull backache 5. Cramps that feel like a period 6. Cramps with or without diarrhea If you notice any of the above symptoms, contact our office at [phone] and ask to speak with a nurse. After hours, you can call doctors registry at [phone] OR call [facility] at [phone] and ask to have the doctor director transition paged. If you consider this an emergency, dial 1-0-9 or go to your nearest emergency department. NEED HELP? Are you dealing with a violent or abusive relationship? Are you a victim of rape or sexual assult? Call [facility] ([place]) 24 hour Crisis Hotline: 754.204.8858 or 756-478-8953. MANUAL Your Guide to a Healthy manual is now on-line. Visit [email or web address] to download your free copy documented in this encounter [facility] 03-13-2025 Progress note Formatting of t his note might be different from the original. S: Nicole Pugh is a 29 year old female who presents at 15 weeks gestation for a routine visit. Increased acid reflux which is causing nausea/ some emesis. Denies headache, visual changes, chest pain, shortness of breath, vaginal bleeding, leakage of fluid, or dysuria. Started feeling flutters. O: See flow sheet Gen: No apparent distress Abd: Gravid, nontender ASSESSMENT/PLAN: 1. 15 weeks gestation of 2. Encounter for supervision of high risk in second trimester 3. Rubella non-immune status, antepartum 4. Heartburn in -Rx for Pepcid 20 mg PO BID sent -Starting ASA PO at night -Support provided -No further vaginal spotting -RTO 4 weeks for anatomy US and KAMLA Vanegas APRN.CNM [facility] 03-13-2025 Miscellaneous Notes S: Nicole Pugh is a 29 year old female who presents at 15 weeks gestation for a routine visit. Increased acid reflux which is causing nausea/ some emesis. Denies headache, visual changes, chest pain, shortness of breath, vaginal bleeding, leakage of fluid, or dysuria. Started feeling flutters. O: See flow sheet Gen: No apparent distress Abd: Gravid, nontender ASSESSMENT/PLAN: 1. 15 weeks gestation of 2. Encounter for supervision of high risk in second trimester 3. Rubella non-immune status, antepartum 4. Heartburn in -Rx for Pepcid 20 mg PO BID sent -Starting ASA PO at night -Support provided -No further vaginal spotting -RTO 4 weeks for anatomy and KAMLA Vanegas APRN.CNM documented in this encounter [facility] 03-13-2025 Instructions Cachorro Gonzalez MA - 03/13/2025 8:04 AM EDT SEQUENTIAL SCREENINGS [facility] offers sequential screenings for women who are interested in screenings for chromosomal abnormalities and certain defects during a . The sequential screen combines ultrasound and blood tests to determine the risk of chromosomal abnormalities, including Down's Syndrome (Trisomy 21) and Trisomy 18, as well as open neural tube defects including spina bifida. Ultrasound examination is performed between 11 weeks and 13 weeks gestational age. Blood tests are drawn after the ultrasound and again later in the between 15 and 21 weeks gestational age. Please let your physician know if you are interested in this testing. It will require an appointment with our health care sanitary technician. This is not an ultrasound performed by a physician in our office during a routine visit. SIGNS AND SYMPTOMS OF LABOR 1. Contractions every 10 minutes or more often 2. Clear, pink, or brownish fluid (water) leaking from vagina 3. Feeling that baby is pushing down, pressure 4. Low, dull backache 5. Cramps that feel like a period 6. Cramps with or without diarrhea If you notice any of the above symptoms, contact our office at [phone] and ask to speak with a nurse. After hours, you can call doctors registry at [phone] OR call [facility] at [phone] and ask to have the doctor director transition paged. If you consider this an emergency, dial 9-1-1 or go to your nearest emergency department. NEED HELP? Are you dealing with a violent or abusive relationship? Are you a victim of rape or sexual assult? Call [facility] ([place]) 24 hour Crisis Hotline: 269.317.6671 or 714-302-3466. MANUAL Your Guide to a Healthy manual is now on-line. Visit [email or web address] to download your free copy documented in this encounter [facility] 02-14-2025 Note HNO ID: [id number] Author: ALEC OSCAR APRN.BLADDER TIER Service: ? Author Type: Nurse Practitioner Type: Progress Notes Filed: 02/14/2025 15:04 Note Text: EH - S: Nicole is a 29 year old female who presents at 12w0d for a routine visit. Denies headache, visual changes, chest pain, shortness of breath, vaginal bleeding, leakage of fluid, or dysuria. Feeling well, no complaints. O: See flow sheet Gen: No apparent distress Abd: Gravid, nontender ASSESSMENT/PLAN: 1. Encounter for supervision of high risk in second trimester, antepartum (HCC) - ICD9: V23.9, ICD10: O09.92 (primary diagnosis) - Continue PNV and LDA - Discussed various recommendations on hot yoga and sauna use. Reviewed body temperature recommendations and would avoid extreme or long exposure to heat. 2. 12 weeks gestation of (HCC) - ICD9: V22.2, ICD10: Z3A.12 - NT scan, report pending - [id number] negative 3. Subchorionic hematoma in first trimester, single or unspecified fetus (HCC) - ICD9: 656.83, ICD10: O41.8X10, O46.8X1 4. Rubella non-immune status, antepartum (HCC) - ICD9: 646.83, V15.83, ICD10: O09.899, Z28.39 - MMR 5. 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 Nausea and vomiting during (HCC) - ICD9: 643.90, ICD10: O21.9 - Taking Vitamin B6 and Promethazine with no relief - Zofran rx sent - Staying hydrated PTL precautions reviewed. RTO in 4 weeks or sooner as needed. Alec Oscar, KENNY.[facility] 02-14-2025 History of Presen t illness Narrative EH - S: Nicole is a 29 year old female who presents at 12w0d for a routine visit. Denies headache, visual changes, chest pain, shortness of breath, vaginal bleeding, leakage of fluid, or dysuria. Feeling well, no complaints. O: See flow sheet Gen: No apparent distress Abd: Gravid, nontender ASSESSMENT/PLAN: 1. Encounter for supervision of high risk in second trimester, antepartum (HCC) - ICD9: V23.9, ICD10: O09.92 (primary diagnosis) - Continue PNV and LDA - Discussed various recommendations on hot yoga and sauna use. Reviewed body temperature recommendations and would avoid extreme or long exposure to heat. 2. 12 weeks gestation of (HCC) - ICD9: V22.2, ICD10: Z3A.12 - NT scan, report pending - [id number] negative 3. Subchorionic hematoma in first trimester, single or unspecified fetus (HCC) - ICD9: 656.83, ICD10: O41.8X10, O46.8X1 4. Rubella non-immune status, antepartum (HCC) - ICD9: 646.83, V15.83, ICD10: O09.899, Z28.39 - MMR 5. 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 Nausea and vomiting during (HCC) - ICD9: 643.90, ICD10: O21.9 - Taking Vitamin B6 and Promethazine with no relief - Zofran rx sent - Staying hydrated PTL precautions reviewed. RTO in 4 weeks or sooner as needed. Alec Oscar APRN.BLADDER TIER documented in this encounter [facility] 02-14-2025 Instructions Leatha Jacobo MA - 02/14/2025 2:10 PM EDT SEQUENTIAL SCREENINGS [facility] offers sequential screenings for women who are interested in screenings for chromosomal abnormalities and certain defects during a . The sequential screen combines ultrasound and blood tests to determine the risk of chromosomal abnormalities, including Down's Syndrome (Trisomy 21) and Trisomy 18, as well as open neural tube defects including spina bifida. Ultrasound examination is performed between 11 weeks and 13 weeks gestational age. Blood tests are drawn after the ultrasound and again later in the between 15 and 21 weeks gestational age. Please let your physician know if you are interested in this testing. It will require an appointment with our health care sanitary technician. This is not an ultrasound performed by a physician in our office during a routine visit. SIGNS AND SYMPTOMS OF LABOR 1. Contractions every 10 minutes or more often 2. Clear, pink, or brownish fluid (water) leaking from vagina 3. Feeling that baby is pushing down, pressure 4. Low, dull backache 5. Cramps that feel like a period 6. Cramps with or without diarrhea If you notice any of the above symptoms, contact our office at [phone] and ask to speak with a nurse. After hours, you can call doctors registry at [phone] OR call [facility] at [phone] and ask to have the doctor director transition paged. If you consider this an emergency, dial 9-1-1 or go to your nearest emergency department. NEED HELP? Are you dealing with a violent or abusive relationship? Are you a victim of rape or sexual assult? Call [facility] ([facility] 24 hour Crisis Hotline: 366.762.3161 or 170-228-0637. MANUAL Your Guide to a Healthy manual is now on-line. Visit [email or web address] to download your free copy documented in this encounter [facility] 01-31-2025 Progress note Formatting of t his note might be different from the original. Patient is at 10 weeks gestation here for NOB. See progress note. Christine Vanegas APRN.CNM [facility] 01-31-2025 Miscellaneous Notes Patient is at 10 weeks gestation here for NOB. See progress note. Christine Vanegas APRN.CNM documented in this encounter [facility] 01-31-2025 Note HNO ID: [id number] Author: CACHORRO GONZALEZ MA Service: ? Author Type: Optical Glass Etcher Type: Progress Notes Filed: 01/31/2025 10:28 Note Text: OB point of care ultrasound was performed. See imaging tab for details. Cachorro Gonzalez MA [facility] 01-31-2025 History of Presen t illness Narrative OB point of care ultrasound was performed. See imaging tab for details. Cachorro Gonzalez MA INITIAL OB ASSESSMENT HPI: Nicole is a 29 year old White Female here to establish Obstetrical Care. Patient's last menstrual period was 11/22/2024. from OB Dating Form. was planned Complaints: No OB History Gravida1 Para0 Term0 Preterm0 AB0 Living0 SAB0 IAB0 Ectopic0 Multiple0 Live Births0 Previous history: Prior : never History of 4th degree laceration: NA History of shoulder dystocia: No History of Hypertensive disorders including pre-eclampsia or gestational hypertension: No History of gestational diabetes: NA Patient's Risk Screening for delivery: Have you had a prior dowd between 20w and 36w6d? No How many pregnancies have you had before? 0 Did you have a previous baby with a GBS Infection? No Please select all that apply for any prior : N/A MEDICAL/PSYCHOSOCIAL HISTORY: History of hemorrhage or bleeding concerns: No Thyroid Disease: No History of chronic hypertension: No History of pre-existing diabetes: No No results found for: ABORHD BMI 23.86 kg/(m^2) Last Pap: 09/2024 History of abnormal pap: No Prior treatment for cervical dysplasia: none. Last HPV: History of STDs: None Partner History of STDs: None Did you have a partner with Herpes? No Tobacco use: No E-Cigarette/Vaping Use: No Caffeine use: Yes Drug use: No Alcohol use: No Multivitamin with Folic acid: Yes Would refuse blood transfusion if medically necessary: No Social Needs: How often does this describe you? I don't have enough money to pay my bills: Never Within the past 12 months, have you worried that your food would run out before you had money to buy more? Never In the past 12 months, has lack of reliable transportation kept you from going to medical appointments or work, or from getting things needed for daily living? Never In the past 12 months, have you had any concerns about having a place to live, or about the condition or quality of your housing? Never Would you like more information on any of the following (please check all that apply)? Legal Internship and Human Resources Consultant care Social History: Do you have any history of depression, anxiety, PTSD, or other mood problems? No Do you have a history of abuse or trauma that may impact your experience? No Are you currently employed? Yes Depression/Anxiety Screening: denies symptoms of depression. OB Depression and Anxiety Screening- This Encounter Over the past 2 weeks have you felt down, depressed, or hopeless? Negative Over the past two weeks, have you felt little interest or pleasure in doing things? Negative Feeling nervous, anxious or on edge 1-Several days Not being able to stop or control worrying 1-Several days Anxiety Pre-Screening Total (If >/= 3 additional questions will be reviewed) 2 Genetic Screening: Partner present: Yes Patient verbalized knowledge of partner family health history: Yes Do you or your partner have any personal or family history of defects not previously discussed: No Do you have history of a complicated by anomaly, genetic condition, or demise: No Preeclampsia Risk Screening: Screening for prevention of preeclampsia: High risk factors: None Moderate risk ractors: Nulliparity OB Risk Screening: Completed, no positive findings documented. 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 OTC PRODUCT Take 1 tablet by mouth once daily. methylhydrofolate vits18/iron/folic/dss (PRENACARE ORAL) Take 1 tablet by mouth once daily. cholecalciferol (VITAMIN D-3) 5,000 unit tab Take 5,000 Units by mouth once daily. MAG CITRATE-POTASSIUM CITRATE ORAL Take 1 tablet by mouth once daily. No current facility-administered medications for this visit. Allergies As of Date: 01/31/2025 (No Known Allergies) Fully Assessed 01/31/2025 Does patient have penicillin allergy: No REVIEW OF SYSTEMS: GENERAL: Negative for: Fever or Chills and Positive for: Fatigue HEENT: Negative for: Headache, Impaired Vision, Ringing in Ears, Nosebleeds NECK: Negative for: Swelling, Pain, Stiffness RESPIRATORY: Negative for: Cough, Shortness of breath, Wheezing GASTROINTESTINAL: Positive for: Constipation MUSCULOSKELETAL: Negative for: Muscle or joint pain, stiffness, Joint swelling NEUROLOGIC/PSYCHIATRIC: Negative for: Weakness, Paralysis, Numbness, Tingling, Tremor, Anxiety, Depression, Memory loss SKIN: Negative for: Rash, Itching GENITOURINARY: Negative for: vaginal itching, vaginal discharge, hematuria or dysuria SENSITIVE EXAM: The sensitive examination was discussed with the Patient or Patient's Authorized Film Technician. As applicable, any other physician, advance practice provider, medical student, or other health professional student that will be observing or involved in the sensitive examination for educational or training purposes was discussed with the Patient or Authorized Film Technician. The Patient or Authorized Film Technician has agreed to proceed with the sensitive examination. (Sensitive examination includes inspection and/or palpation of the breasts, pelvis, prostate and anorectal regions). PHYSICAL EXAM: BP 102/64 Ht 5' 4 (1.63m) Wt 139 lb (63.1kg) LMP 11/22/2024 BMI 23.85 kg/(m^2). GENERAL: pleasant in no apparent distress DERMATOLOGY: Normal, without lesions, non-icteric, and non-hirsute NECK: Supple and full range of motion CHEST: Normal inspiratory effort and Regular rate and rhythm BREAST: deferred ABDOMEN: soft, non-tender, and no masses NEURO: alert and oriented x3,exam grossly non-focal PELVIS: External genitalia normal without lesions. Perineal body intact. No vaginal or cervical lesions. Cervix closed. Clinical Pelvimetry: Pelvimetry clinically assessed as adequate Limited OB ultrasound exam: single intrauterine , positive cardiac activity, and crown-rump length 10.4 days ASSESSMENT: 29 year old at 10w0d wks gestational age PLAN: 1) Patient oriented to practice. Patient given new OB orientation folder. Discussed nutrition, folic acid supplementation, dietary guidelines, exercise, smoking, alcohol, caffeine, and drug use. Discussed gestational weight gain guidelines. Discussed routine OB labs including STD/HIV. Discussed how to access Your guide to a health and the Personal Security Specialist. Reviewed midwifery and weatherization operations manager services that are available. 2) Screening: Hemoglobin A1C: ordered Baby Aspirin: The patient has been counseled about the potential benefits of low dose aspirin in and our recommendation that this be offered to all patients, regardless of whether they meet the high risk criteria specified above. She Accepts Aneuploidy Screening: Discussed aneuploidy screening, nuchal translucency/first trimester early anatomy ultrasound and NIPT. The risks/benefits and limitations of NIPT/aneuploidy screening were reviewed including the potential for false negative and false positive results. The availability of genetic counseling was reviewed. Information on aneuploidy screening was provided. The patient chooses to proceed with NIPT (10 weeks) Myriad Carrier Screening: Discussed myriad carrier screening. We discussed the availability of professional-society guided carrier screening and reviewed the conditions screened and limitations of screening. The availability of genetic counseling was reviewed. Information on carrier screening was provided. The patient Declines 3) Patient offered option of Virtual Visits. Patient prefers in person visits. Follow up in 2 weeks for ultrasound and 4 weeks for KAMLA or sooner pranat Vanegas APRN.CNM documented in this encounter [facility] 01-30-2025 Note HNO ID: [id number] Author: CHRISTINE VANEGAS APRN.CNM Service: ? Author Type: Human Resources Consultant Type: Progress Notes Filed: 01/31/2025 10:28 Note Text: INITIAL OB ASSESSMENT HPI: Nicole is a 29 year old White Female here to establish Obstetrical Care. Patient's last menstrual period was 11/22/2024. from OB Dating Form. was planned Complaints: No OB History Gravida1 Para0 Term0 Preterm0 AB0 Living0 SAB0 IAB0 Ectopic0 Multiple0 Live Births0 Previous history: Prior : never History of 4th degree laceration: NA History of shoulder dystocia: No History of Hypertensive disorders including pre-eclampsia or gestational hypertension: No History of gestational diabetes: NA Patient's Risk Screening for delivery: Have you had a prior dowd between 20w and 36w6d? No How many pregnancies have you had before? 0 Did you have a previous baby with a GBS Infection? No Please select all that apply for any prior : N/A MEDICAL/PSYCHOSOCIAL HISTORY: History of hemorrhage or bleeding concerns: No Thyroid Disease: No History of chronic hypertension: No History of pre-existing diabetes: No No results found for: ABORHD BMI 23.86 kg/(m2) Last Pap: 09/2024 History of abnormal pap: No Prior treatment for cervical dysplasia: none. Last HPV: History of STDs: None Partner History of STDs: None Did you have a partner with Herpes? No Tobacco use: No E-Cigarette/Vaping Use: No Caffeine use: Yes Drug use: No Alcohol use: No Multivitamin with Folic acid: Yes Would refuse blood transfusion if medically necessary: No Social Needs: How often does this describe you? I don't have enough money to pay my bills: Never Within the past 12 months, have you worried that your food would run out before you had money to buy more? Never In the past 12 months, has lack of reliable transportation kept you from going to medical appointments or work, or from getting things needed for daily living? Never In the past 12 months, have you had any concerns about having a place to live, or about the condition or quality of your housing? Never Would you like more information on any of the following (please check all that apply)? Legal Internship and Human Resources Consultant care Social History: Do you have any history of depression, anxiety, PTSD, or other mood problems? No Do you have a history of abuse or trauma that may impact your experience? No Are you currently employed? Yes Depression/Anxiety Screening: denies symptoms of depression. OB Depression and Anxiety Screening- This Encounter Over the past 2 weeks have you felt down, depressed, or hopeless? Negative Over the past two weeks, have you felt little interest or pleasure in doing things?? Negative Feeling nervous, anxious or on edge 1-Several days Not being able to stop or control worrying 1-Several days Anxiety Pre-Screening Total (If >/= 3 additional questions will be reviewed) 2 Genetic Screening: Partner present: Yes Patient verbalized knowledge of partner family health history: Yes Do you or your partner have any personal or family history of defects not previously discussed: No Do you have history of a complicated by anomaly, genetic condition, or demise: No Preeclampsia Risk Screening: Screening for prevention of preeclampsia: High risk factors: None Moderate risk ractors: Nulliparity OB Risk Screening: Completed, no positive findings documented. 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 OTC PRODUCT Take 1 tablet by mouth once daily. methylhydrofolate vits18/iron/folic/dss (PRENACARE ORAL) Take 1 tablet by mouth once daily. cholecalciferol (VITAMIN D-3) 5,000 unit tab Take 5,000 Units by mouth once daily. MAG CITRATE-POTASSIUM CITRATE ORAL Take 1 tablet by mouth once daily. No current facility-administered medications for this visit. Allergies As of Date: 01/31/2025 (No Known Allergies) Fully Assessed 01/31/2025 Does patient have penicillin allergy: No REVIEW OF SYSTEMS: GENERAL: Negative for: Fever or Chills and Positive for: Fatigue HEENT: Negative for: Headache, Impaired Vision, Ringing in Ears, Nosebleeds NECK: Negative for: Swelling, Pain, Stiffness RESPIRATORY: Negative for: Cough, Shortness of breath, Wheezing GASTROINTESTINAL: Positive for: Constipation MUSCULOSKELETAL: Negative for: Muscle or joint pain, stiffness, Joint swelling NEUROLOGIC/PSYCHIATRIC: Negative for: Weakness, Paralysis, Numbness, Tingling, Tremor, Anxiety, Depression, Memory loss SKIN: Negative for: Rash, Itch (more content not included)... [facility] 01-30-2025 Instructions Cachorro Gonzalez MA - 01/30/2025 9:09 AM EDT Please select the following link to access the [facility] Your Guide to a Healthy . [email or web address] Please select the following link to access the [facility] Your Guide to a Healthy . [email or web address] documented in this encounter [facility] 01-10-2025 Note HNO ID: [id number] Author: JUDY DE GUZMAN RT(R) Service: Radiology Author Type: Technologist Type: Progress Notes Filed: 01/10/2025 20:26 Note Text: Summary: Ultrasound Radiology Service Progress Note PATIENT NAME: Nicole Pugh DATE OF SERVICE: January 10, 2025 TIME: 8:25 PM PATIENT IDENTITY VERIFICATION COMPLETED USING TWO (2) IDENTIFIERS: Name and Date of confirmed by patient verbally and Name and Date of confirmed by identification band. FALL SCREENING: Has the patient had 2 falls in the last year or 1 fall with injury or currently using an Ambulatory Assistive Device (Walker, Cane, Wheelchair, Crutches, etc.)? Emergency Room Patient: Screened in ED PATIENT GENDER DATA: PATIENT RELEVANT IMPLANT DATA REVIEWED: Not Applicable PATIENT PRESENTS WITH AN IMPLANTABLE OR ATTACHED CHILDREN'S SERVICE WORKER: No RADIOLOGY DEPARTMENT: Ultrasound PERIPHERAL IV DATA: Not applicable SIGNED BY: RT Nika(R) January 10, 2025 8:25 PM [facility] Evaluation note Diagnosis with uncertain dates, antepartum (HCC)- Primary state, incidental Bicornate uterus Bicornuate uterus Subchorionic hematoma in first trimester, single or unspecified fetus (HCC) 10 weeks gestation of (HCC) state, incidental Encounter for supervision of normal first in first trimester ([facility]) Supervision of normal first Screening for cervical cancer Screening for malignant neoplasm of the cervix Screening for human papillomavirus (HPV) Special screening examination for human papillomavirus (HPV) Constipation, unspecified constipation type [facility] Diagnosis Encounter for supervision of high risk in second trimester, antepartum ([facility])- Primary 12 weeks gestation of ([facility]) state, incidental Subchorionic hematoma in first trimester, single or unspecified fetus (HCC) Rubella non-immune status, antepartum ([facility]) Other specified complication, antepartum Bicornate uterus Bicornuate uterus Nausea and vomiting during ([facility]) [facility] Diagnosis Encounter for screening for malformation using ultrasound ([facility])- Primary Bicornate uterus Bicornuate uterus 12 weeks gestation of ([facility]) state, incidental [facility] Diagnosis 15 weeks gestation of ([facility])- Primary state, incidental Encounter for supervision of high risk in second trimester, antepartum (HCC) Rubella non-immune status, antepartum ([facility]) Other specified complication, antepartum Heartburn during in second trimester ([facility]) [facility] Diagnosis Rubella non-immune status, antepartum (HCC)- Primary Other specified complication, antepartum [facility] Diagnosis Encounter for supervision of low-risk in second trimester (HCC)- Primary 20 weeks gestation of ([facility]) state, incidental Rubella non-immune status, antepartum ([facility]) Other specified complication, antepartum Subchorionic hematoma in first trimester, single or unspecified fetus (HCC) Supervision of high risk in second trimester (HCC) Unspecified high-risk [facility] Diagnosis Encounter for anatomic survey (HCC)- Primary Encounter for anatomic survey 20 weeks gestation of (HCC) state, incidental Encounter for screening for malformation using ultrasound (HCC) [facility] Diagnosis Encounter for supervision of low-risk in second trimester (HCC)- Primary 28 weeks gestation of (HCC) state, incidental Rubella non-immune status, antepartum (HCC) Other specified complication, antepartum Need for vaccination Need for prophylactic vaccination and inoculation against unspecified single disease documented in this encounter [facility] Summary Purpose Family History No Family History Records FoundNo Family History Records FoundNo Family History Records FoundNo Family History Records FoundNo Family History Records Found Advance Directives No Advanced Directives Records FoundNo Advanced Directives Records FoundNo Advanced Directives Records FoundNo Advanced Directives Records FoundNo Advanced Directives Records Found Additional Source Comments INFORMATION SOURCE (unrecogn ized section and content) DATE [facility] DATE CREATED AUTHOR AUTHOR'S ORGANIZ ATION 05/22/2018 [facility] ([place]) DATE CREATED AUTHOR AUTHOR'S ORGANIZ ATION 01/12/2025 [facility] DATE CREATED AUTHOR AUTHOR'S ORGANIZ ATION 04/12/2025 [facility] DATE CREATED AUTHOR AUTHOR'S ORGANIZ ATION 08/11/2025 [facility] Source Comments (unrecognize d section and content) In the event this informatio n is protected by the Federal Confidentiality of Alcohol and Drug Abuse Patient Records regulations: The Federal rules restrict any use of the information to criminally investigate or prosecute any alcohol or drug abuse patient.[facility] the event this information is protected by the Federal Confidentiality of Alcohol and Drug Abuse Patient Records regulations: The Federal rules restrict any use of the information to criminally investigate or prosecute any alcohol or drug abuse patient.[facility] the event this information is protected by the Federal Confidentiality of Alcohol and Drug Abuse Patient Records regulations: The Federal rules restrict any use of the information to criminally investigate or prosecute any alcohol or drug abuse patient.[facility] the event this information is protected by the Federal Confidentiality of Alcohol and Drug Abuse Patient Records regulations: The Federal rules restrict any use of the information to criminally investigate or prosecute any alcohol or drug abuse patient.[facility] the event this information is protected by the Federal Confidentiality of Alcohol and Drug Abuse Patient Records regulations: The Federal rules restrict any use of the information to criminally investigate or prosecute any alcohol or drug abuse patient.[facility] Hospital[facility] the event this information is protected by the Federal Confidentiality of Alcohol and Drug Abuse Patient Records regulations: The Federal rules restrict any use of the information to criminally investigate or prosecute any alcohol or drug abuse patient.[facility] the event this information is protected by the Federal Confidentiality of Alcohol and Drug Abuse Patient Records regulations: The Federal rules restrict any use of the information to criminally investigate or prosecute any alcohol or drug abuse patient.[facility] the event this information is protected by the Federal Confidentiality of Alcohol and Drug Abuse Patient Records regulations: The Federal rules restrict any use of the information to criminally investigate or prosecute any alcohol or drug abuse patient.[facility] Reason for Visit (unrecogniz ed section and content) Reason Comments Initial OB Visit Reason Onset Date Comments Care 02/14/2025 Reason Comments US Specialty Diagnoses / Procedures Referred By Ken t Referred To Contact [facility] Diagnoses with uncertain dates, antepartum (HCC) Bicornate uterus Subchorionic hematoma in first trimester, single or unspecified fetus (HCC) 10 weeks gestation of (HCC) Encounter for supervision of normal first in first trimester (HCC) Procedures OBSTETRIC ULTRASOUND WHI US PREG UTERUS AFTER 1ST TRIMEST GESTATION Christine Vanegas APRN.[facility] [address] [place] [address] Phone: tel: fax: [facility] [address] [place] [address] Referral ID Status Reason Start Date Expiration Date V isits Requested Visits Authorized [id number] Closed Auto-Generate d Referral 02/01/2025 10/02/2025 1 1 Reason Onset Date Comments Care 03/13/2025 Reason Onset Date Comments Care 04/11/2025 Referral ID Status Reason Start Date Expiration Date V isits Requested Visits Authorized [id number] Closed Auto-Generate d Referral 01/31/2025 01/31/2026 1 1 Reason Onset Date Comments Care 06/06/2025 FOR RECORDS PERTAINING TO PATIENTS WHO ARE OR HAVE BEEN ENROLLED IN A CHEMICAL DEPENDENCY/SUBSTANCEABUSE PROGRAM, SOME INFORMATION MAY BE OMITTED. This clinical summary was aggregated from multiple sources. Caution should be exercised in using it in the provision of clinical care. This summary normalizes information from multiple sources, and as a consequence, information in this document may materially change the coding, format and clinical context of patient data. In addition, data may be omitted in some cases. CLINICAL DECISIONS SHOULD BE BASED ON THE PRIMARY CLINICAL RECORDS. [employer] provides no warranty or guarantee of the accuracy or completeness of information in this document.
--- NOTE | 2025-09-01 21:18 | PCM.HP.OB ---
HPI - General General Date of Admission: 09/01/25 Date of Service: 09/01/25 Chief Complaint: Labor HPI Narrative ROLANDO PUGH, is a 30 F who presents with increasingly painful contractions. Started about 0230. Intact. 2cm/90+/-1. GBS pos. Maternal Data Information Final DANIEL: 08/29/25 Gestational age: 40+3 PFSH PFSH Home Medications ?Medication ?Instructions ?Recorded ?Last Taken ?Type ferrous sulfate 325 mg (65 mg 325 mg PO DAILY 09/01/25 09/01/25 History iron) tablet (Feosol) magnesium citrate 100 mg capsule 500 mg PO DAILY digestion 09/01/25 09/01/25 History vit no.95-ferrous 1 tab PO DAILY 09/01/25 09/01/25 History fumarate 28 mg-folic acid 800 mcg tablet () Allergy/AdvReac Type Severity Reaction Status Date / Time No Known Drug Allergies Allergy Unknown n/a Verified 09/01/25 20:51 History 1 Elective abortions Hx Para 0 Spontaneous abortions Hx # Term Pregnancies Ectopic pregnancies Hx # Pregnancies Multiple births # of living children NST FHR Rate Baby A Baseline: 140 Variability:: Moderate Accelerations:: 15 x 15 Decelerations:: Variable NST Reactive:: Yes Uterine Activity:: q 4 ROS Constitutional Constitutional: Denies fatigue, fever(s) or malaise Eyes Eyes: Denies change in vision ENT HEENT: Denies dizziness or headache(s) Cardiovascular Cardiovascular: Denies chest pain, dyspnea or lightheadedness Respiratory/Chest Respiratory/Chest: Denies cough or dyspnea Gastrointestinal Gastrointestinal: Denies change in bowel habits Genitourinary Genitourinary: Denies burning urination or genital lesions Integumentary Integumentary: Denies rash Neurologic Neurologic: Denies confusion, dizziness, headache(s), numbness or weakness Vital Signs Vital Signs Vital Signs: 09/01/25 20:47 09/01/25 20:47 09/01/25 20:47 Pulse Rate 79 Blood Pressure 120/73 BP Systolic 120 BP Diastolic 73 Pulse Ox 98 Weight Weight: 92.896 kg Body Mass Index (BMI) 35.2 Physical Exam Const alert and no apparent distress General Appearance: cooperative HEENT normocephalic Resp normal respiratory effort Cardio regular rate GI soft to palpation GI Narrative: gravid, nontender, appropriate for gestational age Extremity no calf tenderness General Extremity: edema Skin no wounds Rashes: No rashes noted Psych activity/motor behavior normal Assessment & Plan (1) 40 weeks gestation of : (2) Normal labor: (3) Positive GBS test: PLAN: PCN PLAN: Plan Admit for labor PCN Epidural prn
[2025-09-01] MEDS: Lactated Ringers 1,000 ML 50 ML IV (21:34)
[2025-09-01] MEDS: Penicillin G Pot 5,000,000 UNITS in 0.9% Normal Saline (100mL MB+) 100 ML 150 UNITS IV (21:34)
[2025-09-01 21:42] LABS: Hematocrit 39.5 % (37-47); Hemoglobin 13.9 g/dL (12.0-15.0); Immature Granulocytes Count 0.040 X10^3/uL (0.0-0.0); Mean Corp Hgb Conc 35.2 g/dL (32-36); Mean Corpuscular Volume 98.0 fL (81-99); Mean Platelet Vol. 9.3 fl (6.2-12.0); NRBC Flagged by Analyzer 0 % (0-5); Platelet Count 221 K/mm3 (150-450); RBC Distribution Width CV 12.4 % (11.6-14.6); RBC Distribution Width SD 44.9 fl (35.1-43.9); Red Blood Count 4.03 M/mm3 (4.2-5.4); White Blood Count 11.5 K/mm3 (4.4-11.0)
--- NOTE | 2025-09-01 22:05 | NURSING ---
pt requesting novii monitor
[2025-09-01 22:07] LABS: Syphilis Antibodies Nonreactive (Nonreactive)
[2025-09-01] MEDS: Lactated Ringers 1,000 ML 999 ML IV (23:07)
[2025-09-02] VITALS (61 sets, daily range): BP systolic 86–131; BP diastolic 51–80; PULSE 79–115; RESP 16–18; TEMP 36.3–36.9; O2SAT 85–100
[2025-09-02] MEDS: fentaNYL-bupivacaine (epidural) 100 ML BAG EPIDURAL ×3 (00:20→09:32)
[2025-09-02] MEDS: Penicillin G 3,000,000 Units 50 ML 100 UNITS IV ×3 (01:37→10:11)
--- NOTE | 2025-09-02 06:08 | PCM.PN.CNM ---
Subjective Subjective Patient seen at bedside. Comfortable with epidural. Denies any pain or feeling contractions. Objective Data Objective Data Vital Signs: Vital Signs Temp Pulse Resp BP Pulse Ox 97.8 F 105 H 18 101/59 L 100 09/02/25 05:27 09/02/25 05:27 09/02/25 04:09 09/02/25 05:27 09/02/25 01:37 Weight: 204 lb 12.8 oz Body Mass Index (BMI) 35.2 Intake & Output: Intake and Output for Last 24 Hours 08/31/25 09/01/25 09/02/25 23:59 23:59 23:59 Intake Total 277.5 / 277.5 1200 / 1200 Output Total 450 / 450 500 / 500 Balance -172.5 / -172.5 700 / 700 Lab / Micro Data 09/01/25 21:30 Labs: Laboratory Results - last 24 hr 09/01/25 21:30: WBC 11.5 H, RBC 4.03 L, Hgb 13.9, Hct 39.5, MCV 98.0, MCH 34.5 H, MCHC 35.2, RDW Std Deviation 44.9 H, RDW Coeff of Jj 12.4, Plt Count 221, MPV 9.3, Immature Gran % (Auto) 0.300, Neut % (Auto) 73.3 H, Lymph % (Auto) 16.9 L, [place] % (Auto) 8.7, Eos % (Auto) 0.6, Baso % (Auto) 0.2, Absolute Neuts (auto) 8.4 H, Absolute Lymphs (auto) 1.94, Nucleated RBC % 0, Syphilis Total Ab Nonreactive, Blood Type O POSITIVE, Antibody Screen NEGATIVE ROS Eyes Eyes: Denies blurry vision Cardiovascular Cardiovascular: Reports none; Denies chest pain at rest, chest pain with activity or dizziness Respiratory/Chest Respiratory/Chest: Denies cough or dyspnea Gastrointestinal Gastrointestinal: Reports none and other; Denies diarrhea or vomiting Genitourinary Genitourinary: Denies dysuria Musculoskeletal Musculoskeletal: Reports none Integumentary Integumentary: Reports none; Denies rash Neurologic Neurologic: Denies dizziness, headache(s) or other visual disturbances Psychiatric Psychiatric: Reports none Physical Exam Const alert and no apparent distress General Appearance: cooperative Orientation / Consciousness: awake Exam Limitations: no limitations HEENT normocephalic Eyes General Eye: normal appearance of both eyes Neck full ROM Chest inspection of chest normal Resp normal respiratory effort and normal air movement Effort and Inspection: symmetric chest movement Auscultation: clear to auscultation bilaterally Cardio regular rate GI soft to palpation, non-tender and non-distended Inspection: and other Back/Spine normal ROM Extremity full ROM, normal capillary refill and no calf tenderness Skin no rashes or lesions noted Neuro oriented x3 and CN's II-XII intact bilaterally Psych mental status grossly normal Assessment & Plan (1) Positive GBS test: (2) Normal labor: (3) 40 weeks gestation of : (4) Rubella non-immune status, antepartum: (5) Bicornate uterus: (6) Meconium in amniotic fluid: (7) Anemia affecting , antepartum: PLAN: Plan CE /-1 AROM for meconium fluid Contractions 1-3 minutes Start Pitocin at 2 mu/min and increase per orders GBS positive- adequately treated Anticipate Dr. Carrasco & Dr. Joseph updated on A&P
[2025-09-02] MEDS: Oxytocin 15 Units/NS 250ml 15 UNITS/250 ML IV.SOLN 2 UNITS IV (06:30)
[2025-09-02] MEDS: Lactated Ringers 1,000 ML 200 ML IV (08:25)
[2025-09-02] MEDS: Oxytocin 15 Units/NS 250ml 15 UNITS/250 ML IV.SOLN 83 UNITS IV (13:00)
--- NOTE | 2025-09-02 13:14 | OB.VAGDELI_ITS ---
Assessment & Plan (1) Anemia affecting , antepartum: (2) (spontaneous vaginal delivery): (3) Laceration, obstetrical, second degree: Maternal Data Information DANIEL Calculator Estimated Delivery Date Method Current WG Current Estimate 08/29/25 Manual 40w 4d Final DANIEL: 08/29/25 Vaginal Delivery Maternal Presentation Maternal Presentation: Active Labor Maternal Presentation: that presented in spontaneous labor Type of Induction: Pitocin (Augmentation) and Amniotomy Vaginal Delivery Information Procedure Performed: Spontaneous Vaginal Delivery Surgeon/Practitioner: Christine Monzon Date of Procedure: 09/02/25 Pre-Procedure Diagnosis: Term gestation, spontaneous onset of labor Post-Procedure Diagnosis: , Live female Type of anesthesia: Epidural Estimated Blood Loss: 500 Time of Delivery: :27 Findings Description of procedure: Patient progressed to complete dilation. With good maternal effort, head delivered followed by anterior shoulder and remainder of infant body without any force, delay, or traction. Vigorous female was delivered atraumatically and placed on maternal abdomen. Straight cath placed for 300 cc clear/yellow urine. Pitocin IV started for active management of the third stage of labor. 3 vessel cord clamped and cut after delay by FOB and placed immediately skin to skin with patient. Cord blood collected. Placenta delivered spontaneously and intact. A second laceration was repaired in usual fashion using 3-0 Vicryl Rapid. A second degree vaginal laceration also repaired. Hemostasis obtained. Vaginal sweep performed. Fundus is firm 2 below U and bleeding is hemostatic. Sponge and sharps counts correct. Patient and bonding well at this time. Dr. Joseph notified of delivery. Routine post orders placed. Presentation: Vertex Amniotic Membrane Rupture Type: Artificial Amniotic Fluid Description: Moderate meconium Placental Delivery Description: Spontaneous Placenta Disposition: [facility] Specimen collected: No Cord Vessel Description: 3 Vessels Cord Entanglement: None Nuchal Cord Compression: Without compression Infant A Gender: Female (1 minute): 8 (5 minute): 9 Delayed Cord Clamping: Yes Audit Practice Intern smt technician: No Post Vaginal Deli Medications given after delivery: IV Pitocin Episiotomy Description: None Laceration: Vaginal Extension/lac and 2nd degree Complication Complications: No
[2025-09-02] MEDS: GLYCERIN/WITCH HAZEL (TUCKS) MED..PAD 1 EACH TOPICAL (16:28)
[2025-09-02] MEDS: Benzocaine/Lanolin/Aloe Vera 85 GM Spray 1 SPRAY TOPICAL (16:28)
[2025-09-02] MEDS: SELF ADMINISTRATION OF MEDS 1 EACH NOTE ×2 (16:37→22:42)
[2025-09-03 00:30] VITALS: BP 112/72; PULSE 78; RESP 18; TEMP 36.3; O2SAT 98
[2025-09-03 04:20] VITALS: BP 114/77; PULSE 78; RESP 16; TEMP 36.3; O2SAT 97
[2025-09-03 05:37] LABS: Hematocrit 30.9 % (37-47); Hemoglobin 10.4 g/dL (12.0-15.0); Immature Granulocytes Count 0.070 X10^3/uL (0.0-0.0); Mean Corp Hgb Conc 33.7 g/dL (32-36); Mean Corpuscular Volume 100.0 fL (81-99); Mean Platelet Vol. 9.3 fl (6.2-12.0); NRBC Flagged by Analyzer 0 % (0-5); Platelet Count 175 K/mm3 (150-450); RBC Distribution Width CV 12.5 % (11.6-14.6); RBC Distribution Width SD 45.1 fl (35.1-43.9); Red Blood Count 3.09 M/mm3 (4.2-5.4); White Blood Count 11.0 K/mm3 (4.4-11.0)
[2025-09-03 09:02] VITALS: BP 92/53; PULSE 76; RESP 15; TEMP 36.4; O2SAT 98
[2025-09-03] MEDS: MEASLES,MUMPS,RUBELLA VACC/PF 0.5 ML SC (09:44)
--- NOTE | 2025-09-03 11:45 | PN.OBGYN_ITS ---
Subjective Subjective Doing well per patient and nursing staff. Ambulating and taking PO without difficulty. Voiding and passing flatus. Pain controlled. Bottle feeding. Denies headache, visual changes, chest pain, shortness of breath, leg pain or increased bleeding. Lochia normal. Objective Data Objective Data Vital Signs: Vital Signs Temp Pulse Resp BP Pulse Ox O2 Del Method 97.6 F L 76 15 92/53 L 98 Room Air 09/03/25 09:02 09/03/25 09:02 09/03/25 09:02 09/03/25 09:02 09/03/25 09:02 09/03/25 09:02 Oxygen Delivery Method Room Air Weight: 204 lb 12.8 oz Body Mass Index (BMI) 35.2 Intake & Output: Intake and Output for Last 24 Hours 09/01/25 09/02/25 09/03/25 23:59 23:59 23:59 Intake Total 277.5 / 277.5 3522.71 / 3522.71 Output Total 450 / 450 3450 / 3450 900 / 900 Balance -172.5 / -172.5 72.71 / 72.71 -900 / -900 Lab / Micro Data 09/03/25 05:27 Labs: Laboratory Results - last 24 hr 09/03/25 05:27: WBC 11.0, RBC 3.09 L, Hgb 10.4 L, Hct 30.9 L, MCV 100.0 H, MCH 33.7 H, MCHC 33.7, RDW Std Deviation 45.1 H, RDW Coeff of Jj 12.5, Plt Count 175, MPV 9.3, Immature Gran % (Auto) 0.600, Neut % (Auto) 72.2 H, Lymph % (Auto) 17.3 L, [place] % (Auto) 8.8, Eos % (Auto) 1.0, Baso % (Auto) 0.1, Absolute Neuts (auto) 7.9 H, Absolute Lymphs (auto) 1.90, Nucleated RBC % 0 ROS Constitutional Constitutional: Reports systems reviewed and no addt'l complaints, except as documented; Denies headache(s) Eyes Eyes: Denies acute decrease in peripheral vision, blurry vision or change in vision ENT HEENT: Reports systems reviewed and no addt'l complaints, except as documented Cardiovascular Cardiovascular: Denies chest pain or dizziness Respiratory/Chest Respiratory/Chest: Denies cough, dyspnea, dyspnea on exertion, shortness of breath at rest or shortness of breath with exertion Gastrointestinal Gastrointestinal: Denies abdominal pain, diarrhea, nausea or vomiting Genitourinary Genitourinary: Denies abdominal discomfort Musculoskeletal Musculoskeletal: Denies limited range of motion Integumentary Integumentary: Reports systems reviewed and no addt'l complaints, except as documented Neurologic Neurologic: Reports systems reviewed and no addt'l complaints, except as documented Psychiatric Psychiatric: Reports systems reviewed and no addt'l complaints, except as documented Endocrine Endocrinology: Reports systems reviewed and no addt'l complaints, except as documented Hematologic/Lymphatic Hematologic/Lymphatic: Reports systems reviewed and no addt'l complaints, except as documented Allergic/Immunologic Allergic/Immunologic: Reports systems reviewed and no addt'l complaints, except as documented Assessment & Plan (1) Laceration, obstetrical, second degree: (2) (spontaneous vaginal delivery): PLAN: Plan 1) Routine care, PPD #1 2) Vitals signs stable 3) Pain controlled 4) , services PRN 5) D/C home 6) Follow up in 2 weeks and 6 weeks
--- NOTE | 2025-09-03 11:46 | PCM.DC.SUM ---
Providers Date of Admission: 09/01/25 Primary Care Physician: Windy Primary Care Phys Reason For Visit: LABOR/DEL VAG DEL Diagnosis Discharge Diagnosis (1) Laceration, obstetrical, second degree: Status: Acute Code(s): O70.1 - Second degree perineal laceration during delivery (2) (spontaneous vaginal delivery): Status: Acute Code(s): O80 - Encounter for full-term uncomplicated delivery Plan 1) Routine care, PPD #1 2) Vitals signs stable 3) Pain controlled 4) , services PRN 5) D/C home 6) Follow up in 2 weeks and 6 weeks Medications at Discharge Home Medications ferrous sulfate 325 mg (65 mg iron) tablet (Feosol) 325 mg PO DAILY 09/01/25 vit no.95-ferrous fumarate 28 mg-folic acid 800 mcg tablet () 1 tab PO DAILY 09/01/25 acetaminophen 500 mg tablet 1,000 mg (2 x 500 mg) PO Q6H PRN PRN Pain 1-10 Or Fever #0 tabs 09/03/25 naproxen 500 mg tablet 500 mg PO Q8H PRN PRN Pain Score 1-10 #0 tabs 09/03/25 Weight / BMI Weight Weight: 204 lb 12.8 oz Body Mass Index (BMI) 35.2 PRE- weight 132 lb PRE- Body Mass Index 22.5 (BMI) ABG / Lab / Microbiology Data 09/03/25 05:27 Laboratory: Laboratory Results - last 24 hr 09/03/25 05:27: WBC 11.0, RBC 3.09 L, Hgb 10.4 L, Hct 30.9 L, MCV 100.0 H, MCH 33.7 H, MCHC 33.7, RDW Std Deviation 45.1 H, RDW Coeff of Jj 12.5, Plt Count 175, MPV 9.3, Immature Gran % (Auto) 0.600, Neut % (Auto) 72.2 H, Lymph % (Auto) 17.3 L, [place] % (Auto) 8.8, Eos % (Auto) 1.0, Baso % (Auto) 0.1, Absolute Neuts (auto) 7.9 H, Absolute Lymphs (auto) 1.90, Nucleated RBC % 0 D/C Instructions DC O2, CPAP, BIPAP Needs Home O2 Discharge instructions: No Meaningful Use Info Meaningful Use Meaningful Use Diagnoses (Choose all that apply): None applicable Discharge Plan Admission Admit Date/Time: 09/01/25 21:05 Primary Reason for Your Visit: Vaginal Delivery Attending Provider: Christine Monzon Primary Care Provider: Care Physician,No Primary Discharge Orders/Prescriptions Prescriptions: New acetaminophen 500 mg Tablet 1,000 mg PO Q6H PRN PRN (Reason: Pain 1-10 Or Fever) Qty: 0 0RF naproxen 500 mg Tablet 500 mg PO Q8H PRN PRN (Reason: Pain Score 1-10) Qty: 0 0RF Continued PNV no.95-ferrous fumarate-FA [] 28 mg iron- 800 mcg tablet 1 tab PO DAILY ferrous sulfate [Feosol] 325 mg (65 mg iron) tablet 325 mg PO DAILY Discontinued magnesium citrate 100 mg capsule 500 mg PO DAILY Referrals / Follow Up: Christine Monzon CNM [Med Staff - Adv Practice Prof, Obstetrics] Care Physician,No Primary [Primary Care Provider, Medical] Disposition Disposition (needs filled in before D/C Order can be placed): Home, Self Care
[2025-09-03 13:38] VITALS: BP 99/59; PULSE 80; RESP 16; TEMP 36.2; O2SAT 98
== END 2025-09-03 15:50 | disposition home or self-care (01) | DRG 807 ==
LOC: WPOUT 21:08 → WP 21:08
PROVIDERS: Obstetrics & Gynecology; Admitting Provider Advanced Practice Midwife; Referring Provider Advanced Practice Midwife; Visit Provider Advanced Practice Midwife
DX: O98.82 Other maternal infectious and parasitic diseases complicating childbirth (principal); Z37.0 Single live birth; B95.1 Streptococcus, group B, as the cause of diseases classified elsewhere; O76 Abnormality in fetal heart rate and rhythm complicating labor and delivery; O34.03 Maternal care for unspecified congenital malformation of uterus, third trimester; Q51.3 Bicornate uterus; O77.0 Labor and delivery complicated by meconium in amniotic fluid; O99.02 Anemia complicating childbirth; O99.892 Other specified diseases and conditions complicating childbirth; O70.1 Second degree perineal laceration during delivery; Z3A.40 40 weeks gestation of pregnancy
CPT/HCPCS: 59025; 59050; 85025; 86780; 86850; 86900; 86901; 99221; G0378; J2405